=== PATIENT | female | born 1955 | race Caucasian/White ===

== ENCOUNTER 2018-10-18 16:55 | Emergency (ER) | payer BC ==
[~2018-10-18] VITALS: Ht 170.2 cm; Wt 85.3 kg
--- OUTSIDE RECORDS SUMMARY | 2018-10-18 17:02 | XMS REPORT ---
Author Author Arvin Solano [facility] Address [address] [place] [address] Care Team Providers Care Electrical Engineering Drafting Officer Name Role Phone Arvin Solano Unavailable PROBLEMS Type Condition ICD9-CM Code [id number] Code Onset Dates Condition Status SNOMED Code Problem Tinea unguium B35.1 Active 192032048 Problem Tinea corporis B35.4 Active 60159770 Problem Malignant neoplasm of thyroid gland C73 Active 574356372 Problem Hypothyroidism E03.9 Active 68460316 Problem Chronic Sinusitis J32.9 Active 21643223 Problem Nocturia R35.1 Active [id number] ALLERGIES No Information ENCOUNTERS Encounter Location Date Diagnosis [facility] [address] [place] [address] Sep, [facility] [place] [address] [place] [address] Sep, [facility] [address] [place] [address] Sep, Anemia D62 [facility] [address] [place] [address] Aug, Anemia D62 [facility] [address] [place] [address] Aug, [facility] [address] [place] [address] Aug, [facility] [address] [place] [address] Aug, [facility] [address] [place] [address] Aug, [facility] [address] [place] [address] 14 Aug, 2018 Retroperitoneal bleed R58 [facility] [address] [place] [address] Aug, [facility] [address] [place], [place] [id number] 08 Aug, 2018 Retroperitoneal bleed R58 [facility] [address] [place] [address] Aug, Anemia D62 [facility] [address] [place] [address] Jul, [facility] [address] [place] [id number] Jul, [facility] [address] [place] [id number] Jul, [facility] [address] [place] [id number] Jul, [facility] [address] [place] [address] Jul, Right upper quadrant abdominal pain R10.11 and Encounter for preprocedural cardiovascular examination Z01.810 [facility] [address] [place] [address] Jul, Right upper quadrant abdominal pain R10.11 and Encounter for preprocedural cardiovascular examination Z01.810 [facility] [address] [place] [address] Jul, Right upper quadrant abdominal pain R10.11 and Encounter for preprocedural cardiovascular examination Z01.810 [facility] [address] [place] [address] Jul, [facility] [address] [place] [address] Jul, [facility] [address] [place] [address] Jul, [facility] [address] [place] [address] Jun, [facility] [address] [place] [address] Jun, [facility] [address] [place] [address] Jun, [facility] [address] [place] [address] Jun, [facility] [address] [place] [address] May, Encounter for screening mammogram for breast cancer Z12.31 [facility] [address] [place] [id number] May, Encounter for general adult medical examination without abnormal findings Z00.00 ; Nocturia R35.1 ; Hypothyroidism E03.9 ; Chronic Sinusitis J32.9 ; Malignant neoplasm of thyroid gland C73 ; Other screening mammogram Z12.31 and Encounter for preprocedural cardiovascular examination Z01.810 [facility] [address] [place] [address] Apr, [facility] [address] [place] [address] Apr, [facility] [address] [place] [address] Apr, [facility] [address] [place] [address] Mar, [facility] [address] [place] [address] Jan, [facility] [address] [place] [address] Jan, [facility] [address] [place] [address] May, [facility] [address] [place] [address] Apr, [facility] [address] [place] [address] Apr, Breast cancer screening Z12.31 [facility] [address] [place] [address] Apr, Encounter for general adult medical examination without abnormal findings Z00.00 ; Nocturia R35.1 ; Hypothyroidism E03.9 ; Chronic Sinusitis J32.9 ; Malignant neoplasm of thyroid gland C73 ; Tinea unguium B35.1 ; Tinea corporis B35.4 and Other screening mammogram Z12.31 [facility] [address] [place] [address] Feb, [facility] [address] [place] [address] Feb, [facility] [address] [place] [address] Feb, [facility] [address] [place] [address] Jan, [facility] [address] [place] [address] Nov, [facility] [address] [place] [address] Feb, [facility] [address] [place] [address] Feb, [facility] [address] [place] [address] 2016 Abnormal mammogram of right breast R92.8 [facility] [address] [place] [address] 14 Jan, 2016 [facility] [address] [place] [address] Jan, [facility] [address] [place] [address] 08 Jan, 2016 Encounter for screening mammogram for breast cancer Z12.31 [facility] [address] [place] [address] 08 Jan, 2016 Encounter for general adult medical examination without abnormal findings Z00.00 ; Nocturia R35.1 ; Hypothyroidism E03.9 ; Chronic Sinusitis J32.9 ; Malignant neoplasm of thyroid gland C73 ; Tinea unguium B35.1 ; Tinea corporis B35.4 ; Other screening mammogram Z12.31 and Encounter for screening mammogram for breast cancer Z12.31 [facility] [address] [place] [address] 18 May, 2015 [facility] [address] [place] [address] 17 May, 2015 [facility] [address] [place] [address] 16 Nov, 2014 Mammogram Screening V76.12 [facility] [address] [place] [address] 16 Nov, 2014 Adult Wellness Exam V70.0 ; Hypothyroidism 244.9 ; Nocturia 788.43 ; Malignant neoplasm of thyroid gland 193 ; Mammogram Screening V76.12 ; Fatigue 780.79 ; Wart 078.10 and Tinea unguium 110.1 [facility] [address] [place] [address] Nov, [facility] [address] [place] [address] Jun, [facility] [address] [place] [address] May, Hypothyroidism 244.9 [facility] [address] [place] [address] Jan, [facility] [address] [place] [address] Dec, Hypothyroidism 244.9 [facility] [address] [place] [address] Sep, [facility] [address] [place] [address] Sep, Adult Wellness Exam V70.0 ; Mammogram Screening V76.12 ; Hypothyroidism 244.9 ; Nocturia 788.43 ; Sinusitis 473.9 and Malignant neoplasm of thyroid gland 193 [facility] [address] [place] [address] Sep, Adult Wellness Exam V70.0 ; Sinusitis 473.9 ; Hypothyroidism 244.9 ; Nocturia 788.43 ; Malignant neoplasm of thyroid gland 193 and Mammogram Screening V76.12 [facility] [address] [place] [address] Jul, [facility] [address] [place] [address] Mar, Hypothyroidism 244.9 [facility] [address] [place] [phone] Feb, [facility] [address] [place] [address] Jan, [facility] [address] [place] [address] Jan, Hypothyroidism 244.9 [facility] [address] [place] [address] Dec, Hypothyroidism 244.9 [facility] [address] [place] [address] Jul, Adult Wellness Exam V70.0 ; Mammogram Screening V76.12 ; Hypothyroidism 244.9 ; Nocturia 788.43 ; Sinusitis 473.9 ; Malignant neoplasm of thyroid gland 193 and Fatigue 780.79 [facility] [address] [place] [address] Jul, Adult Wellness Exam V70.0 ; Hypothyroidism 244.9 ; Nocturia 788.43 ; Mammogram Screening V76.12 ; Sinusitis 473.9 ; Malignant neoplasm of thyroid gland 193 and Fatigue 780.79 [facility] [address] [place] [address] Apr, [facility] [address] [place] [address] Apr, [facility] [address] [place] [address] Mar, [facility] [place] [address] [place] [address] Mar, [facility] [place] [address] [place] [address] Jan, [facility] [address] [address] Jan, [facility] [address] [address] Dec, [facility] [address] [address] October, [facility] [address] [address] Nov, IMMUNIZATIONS No Known Immunizations SOCIAL HISTORY Never Assessed REASON FOR VISIT MRI CD PLAN OF CARE VITAL SIGNS MEDICATIONS Unknown Medications RESULTS No Results PROCEDURES No Known procedures INSTRUCTIONS MEDICATIONS ADMINISTERED No Known Medications MEDICAL (GENERAL) HISTORY Type Description Date Medical History Hypothyroidism Medical History Thyroid Cancer Medical History Allergic Rhinitis Surgical History thyroidectomy for cancer Surgical History cervical polypectomy Surgical History Colonoscopy Repeat 5 yrs due for +FH colon cancer 2007 Surgical History Colonoscopy Repeat 5 yr 2012
--- OUTSIDE RECORDS SUMMARY | 2018-10-18 17:02 | XMS REPORT ---
Author Author Arvin Solano [facility] Address [address] [place] [address] Care Team Providers Care Furnace Repairer Name Role Phone Arvin Solano Unavailable PROBLEMS Type Condition ICD9-CM Code GQR19-FA Code Onset Dates Condition Status SNOMED Code Problem Tinea unguium B35.1 Active 840159132 Problem Tinea corporis B35.4 Active 55986696 Problem Malignant neoplasm of thyroid gland C73 Active 330888024 Problem Hypothyroidism E03.9 Active 57948362 Problem Chronic Sinusitis J32.9 Active 97912521 Problem Nocturia R35.1 Active 350037776 ALLERGIES No Information ENCOUNTERS Encounter Location Date Diagnosis [facility] [address] [place] [address] Sep, [facility] [place] [address] [place] [address] Sep, [facility] [address] [place] [address] Sep, Anemia D62 [facility] [address] [place] [address] Aug, Anemia D62 [facility] [address] [place] [address] Aug, [facility] [address] [place] [address] Aug, [facility] [address] [place] [address] Aug, [facility] [address] [place] [address] Aug, [facility] [address] [place] [address] Aug, Retroperitoneal bleed R58 [facility] [address] [place] [address] Aug, [facility] [address] [place] [address] 08 Aug, 2018 Retroperitoneal bleed R58 [facility] [address] [place] [address] Aug, Anemia D62 [facility] [address] [place] [address] Jul, [facility] [address] [place] [id number] Jul, [facility] [address] [place] [id number] Jul, [facility] [address] [place] [id number] Jul, [facility] [address] [place] [address] Jul, Right upper quadrant abdominal pain R10.11 and Encounter for preprocedural cardiovascular examination Z01.810 [facility] [address] [place] [address] Jul, Right upper quadrant abdominal pain R10.11 and Encounter for preprocedural cardiovascular examination Z01.810 [facility] [address] [place] [address] Jul, Right upper quadrant abdominal pain R10.11 and Encounter for preprocedural cardiovascular examination Z01.810 [facility] [address] [place] [address] Jul, [facility] [address] [place] [address] Jul, [facility] [address] [place] [address] Jul, [facility] [address] [place] [address] Jun, [facility] [address] [place] [address] Jun, [facility] [address] [place] [address] Jun, [facility] [address] [place] [address] Jun, [facility] [address] [place] [address] May, Encounter for screening mammogram for breast cancer Z12.31 [facility] [address] [place] [id number] May, Encounter for general adult medical examination without abnormal findings Z00.00 ; Nocturia R35.1 ; Hypothyroidism E03.9 ; Chronic Sinusitis J32.9 ; Malignant neoplasm of thyroid gland C73 ; Other screening mammogram Z12.31 and Encounter for preprocedural cardiovascular examination Z01.810 [facility] [address] [place] [address] Apr, [facility] [address] [place] [address] Apr, [facility] [address] [place] [address] Apr, [facility] [address] [place] [address] Mar, [facility] [address] [place] [address] Jan, [facility] [address] [place] [address] Jan, [facility] [address] [place] [address] May, [facility] [address] [place] [address] Apr, [facility] [address] [place] [address] Apr, Breast cancer screening Z12.31 [facility] [address] [place] [address] Apr, Encounter for general adult medical examination without abnormal findings Z00.00 ; Nocturia R35.1 ; Hypothyroidism E03.9 ; Chronic Sinusitis J32.9 ; Malignant neoplasm of thyroid gland C73 ; Tinea unguium B35.1 ; Tinea corporis B35.4 and Other screening mammogram Z12.31 [facility] [address] [place] [address] Feb, [facility] [address] [place] [address] Feb, [facility] [address] [place] [address] Feb, [facility] [address] [place] [address] Jan, [facility] [address] [place] [address] Nov, [facility] [address] [place] [address] Feb, [facility] [address] [place] [address] Feb, [facility] [address] [place] [address] 2016 Abnormal mammogram of right breast R92.8 [facility] [address] [place] [address] 14 Jan, 2016 [facility] [address] [place] [address] Jan, [facility] [address] [place] [address] 08 Jan, 2016 Encounter for screening mammogram for breast cancer Z12.31 [facility] [address] [place] [address] 08 Jan, 2016 Encounter for general adult medical examination without abnormal findings Z00.00 ; Nocturia R35.1 ; Hypothyroidism E03.9 ; Chronic Sinusitis J32.9 ; Malignant neoplasm of thyroid gland C73 ; Tinea unguium B35.1 ; Tinea corporis B35.4 ; Other screening mammogram Z12.31 and Encounter for screening mammogram for breast cancer Z12.31 [facility] [address] [place] [address] 18 May, 2015 [facility] [address] [place] [address] 17 May, 2015 [facility] [address] [place] [address] 16 Nov, 2014 Mammogram Screening V76.12 [facility] [address] [place] [address] 16 Nov, 2014 Adult Wellness Exam V70.0 ; Hypothyroidism 244.9 ; Nocturia 788.43 ; Malignant neoplasm of thyroid gland 193 ; Mammogram Screening V76.12 ; Fatigue 780.79 ; Wart 078.10 and Tinea unguium 110.1 [facility] [address] [place] [address] Nov, [facility] [address] [place] [address] Jun, [facility] [address] [place] [address] May, Hypothyroidism 244.9 [facility] [address] [place] [address] Jan, [facility] [address] [place] [address] Dec, Hypothyroidism 244.9 [facility] [address] [place] [address] Sep, [facility] [address] [place] [address] Sep, Adult Wellness Exam V70.0 ; Mammogram Screening V76.12 ; Hypothyroidism 244.9 ; Nocturia 788.43 ; Sinusitis 473.9 and Malignant neoplasm of thyroid gland 193 [facility] [address] [place] [address] Sep, Adult Wellness Exam V70.0 ; Sinusitis 473.9 ; Hypothyroidism 244.9 ; Nocturia 788.43 ; Malignant neoplasm of thyroid gland 193 and Mammogram Screening V76.12 [facility] [address] [place] [address] Jul, [facility] [address] [place] [address] Mar, Hypothyroidism 244.9 [facility] [address] [place] [phone] Feb, [facility] [address] [place] [address] Jan, [facility] [address] [place] [address] Jan, Hypothyroidism 244.9 [facility] [address] [place] [address] Dec, Hypothyroidism 244.9 [facility] [address] [place] [address] Jul, Adult Wellness Exam V70.0 ; Mammogram Screening V76.12 ; Hypothyroidism 244.9 ; Nocturia 788.43 ; Sinusitis 473.9 ; Malignant neoplasm of thyroid gland 193 and Fatigue 780.79 [facility] [address] [place] [address] Jul, Adult Wellness Exam V70.0 ; Hypothyroidism 244.9 ; Nocturia 788.43 ; Mammogram Screening V76.12 ; Sinusitis 473.9 ; Malignant neoplasm of thyroid gland 193 and Fatigue 780.79 [facility] [address] [place] [address] Apr, [facility] [address] [place] [address] Apr, [facility] [address] [place] [address] Mar, [facility] [place] [address] [place] [address] Mar, [facility] [place] [address] [place] [address] Jan, [facility] [place] [address] [place] [address] Jan, [facility] [address] [address] Dec, [facility] [address] [address] October, [facility] [address] [address] Nov, IMMUNIZATIONS No Known Immunizations SOCIAL HISTORY Never Assessed REASON FOR VISIT Re:RE:Appointment with specialist? PLAN OF CARE VITAL SIGNS MEDICATIONS Unknown [...]
--- OUTSIDE RECORDS SUMMARY | 2018-10-18 17:02 | XMS REPORT ---
Author Author [facility] Address [address] [place] [address] Care Team Providers Care Charge Auditor Name Role Phone Arvin Solano Unavailable PROBLEMS Type Condition ICD9-CM Code [id number] Code Onset Dates Condition Status SNOMED Code Problem Tinea unguium B35.1 Active 704432963 Problem Tinea corporis B35.4 Active 40253113 Problem Malignant neoplasm of thyroid gland C73 Active 686075932 Problem Hypothyroidism E03.9 Active 68881787 Problem Chronic Sinusitis J32.9 Active 93572249 Problem Nocturia R35.1 Active [id number] ALLERGIES No Information ENCOUNTERS Encounter Location Date Diagnosis [facility] [place] [address] [place] [address] Sep, [facility] [place] [address] [place] [address] Sep, [facility] [place] [address] [place] [address] Sep, Anemia D62 [facility] [address] [place] [address] Aug, Anemia D62 [facility] [place] [address] [place] [address] Aug, [facility] [address] [place] [address] Aug, [facility] [address] [place] [address] Aug, [facility] [address] [place] [address] Aug, [facility] [address] [place] [address] Aug, Retroperitoneal bleed R58 [facility] [address] [place] [address] Aug, [facility] [address] [place] [address] Aug, Retroperitoneal bleed R58 [facility] [address] [place] [address] Aug, Anemia D62 [facility] [address] [place] [address] Jul, [facility] [address] [place] [address] Jul, [facility] [address] [place] [address] Jul, [facility] [address] [place] [address] Jul, [facility] [address] [place] [address] Jul, Right upper quadrant abdominal pain R10.11 and Encounter for preprocedural cardiovascular examination Z01.810 [facility] [address] [place] [address] Jul, Right upper quadrant abdominal pain R10.11 and Encounter for preprocedural cardiovascular examination Z01.810 [facility] [address] [place] [address] Jul, Right upper quadrant abdominal pain R10.11 and Encounter for preprocedural cardiovascular examination Z01.810 [facility] [address] [place] [address] Jul, [facility] [address] [place] [address] Jul, [facility] [address] [place] [address] Jul, [facility] [address] [place] [address] Jun, [facility] [address] [place] [address] Jun, [facility] [address] [place] [address] Jun, [facility] [address] [place] [address] Jun, [facility] [address] [place] [address] May, Encounter for screening mammogram for breast cancer Z12.31 [facility] [address] [place] [address] May, Encounter for general adult medical examination without abnormal findings Z00.00 ; Nocturia R35.1 ; Hypothyroidism E03.9 ; Chronic Sinusitis J32.9 ; Malignant neoplasm of thyroid gland C73 ; Other screening mammogram Z12.31 and Encounter for preprocedural cardiovascular examination Z01.810 [facility] [address] [place] [address] 14 Apr, 2018 [facility] [address] [place] [address] Apr, [facility] [address] [place] [address] Apr, [facility] [address] [place] [address] Mar, [facility] [address] [place] [address] Jan, [facility] [address] [place] [address] Jan, [facility] [address] [place] [address] May, [facility] [address] [place] [address] Apr, [facility] [address] [place] [address] Apr, Breast cancer screening Z12.31 [facility] [address] [place] [address] Apr, Encounter for general adult medical examination without abnormal findings Z00.00 ; Nocturia R35.1 ; Hypothyroidism E03.9 ; Chronic Sinusitis J32.9 ; Malignant neoplasm of thyroid gland C73 ; Tinea unguium B35.1 ; Tinea corporis B35.4 and Other screening mammogram Z12.31 [facility] [address] [place] [address] Feb, [facility] [address] [place] [address] Feb, [facility] [address] [place] [address] Feb, [facility] [address] [place] [address] Jan, [facility] [address] [place] [address] Nov, [facility] [address] [place] [address] Feb, [facility] [address] [place] [address] Feb, [facility] [address] [place] [address] 2016 Abnormal mammogram of right breast R92.8 [facility] [address] [place] [address] 14 Jan, 2016 [facility] [address] [place] [address] Jan, [facility] [address] [place] [address] 08 Jan, 2016 Encounter for screening mammogram for breast cancer Z12.31 [facility] [address] [place] [address] 08 Jan, 2016 Encounter for general adult medical examination without abnormal findings Z00.00 ; Nocturia R35.1 ; Hypothyroidism E03.9 ; Chronic Sinusitis J32.9 ; Malignant neoplasm of thyroid gland C73 ; Tinea unguium B35.1 ; Tinea corporis B35.4 ; Other screening mammogram Z12.31 and Encounter for screening mammogram for breast cancer Z12.31 [facility] [address] [place] [address] 18 May, 2015 [facility] [address] [place] [address] 17 May, 2015 [facility] [address] [place] [address] 16 Nov, 2014 Mammogram Screening V76.12 [facility] [address] [place] [address] 16 Nov, 2014 Adult Wellness Exam V70.0 ; Hypothyroidism 244.9 ; Nocturia 788.43 ; Malignant neoplasm of thyroid gland 193 ; Mammogram Screening V76.12 ; Fatigue 780.79 ; Wart 078.10 and Tinea unguium 110.1 [facility] [address] [place] [address] Nov, [facility] [address] [place] [address] Jun, [facility] [address] [place] [address] May, Hypothyroidism 244.9 [facility] [address] [place] [address] Jan, [facility] [address] [place] [address] Dec, Hypothyroidism 244.9 [facility] [address] [place] [address] Sep, [facility] [address] [place] [address] Sep, Adult Wellness Exam V70.0 ; Mammogram Screening V76.12 ; Hypothyroidism 244.9 ; Nocturia 788.43 ; Sinusitis 473.9 and Malignant neoplasm of thyroid gland 193 [facility] [address] [place] [address] Sep, Adult Wellness Exam V70.0 ; Sinusitis 473.9 ; Hypothyroidism 244.9 ; Nocturia 788.43 ; Malignant neoplasm of thyroid gland 193 and Mammogram Screening V76.12 [facility] [address] [place] [address] Jul, [facility] [address] [place] [address] Mar, Hypothyroidism 244.9 [facility] [address] [place] [id number] Feb, [facility] [address] [place] [address] Jan, [facility] [address] [place] [address] Jan, Hypothyroidism 244.9 [facility] [address] [place] [address] Dec, Hypothyroidism 244.9 [facility] [address] [place] [address] Jul, Adult Wellness Exam V70.0 ; Mammogram Screening V76.12 ; Hypothyroidism 244.9 ; Nocturia 788.43 ; Sinusitis 473.9 ; Malignant neoplasm of thyroid gland 193 and Fatigue 780.79 [facility] [address] [place] [address] Jul, Adult Wellness Exam V70.0 ; Hypothyroidism 244.9 ; Nocturia 788.43 ; Mammogram Screening V76.12 ; Sinusitis 473.9 ; Malignant neoplasm of thyroid gland 193 and Fatigue 780.79 [facility] [address] [place] [address] Apr, [facility] [address] [place] [address] Apr, [facility] [address] [place] [address] Mar, [facility] [place] [address] [place] [address] Mar, [facility] [place] [address] [place] [address] Jan, [facility] [place] [address] [place] [address] Jan, [facility] [place] [address] [place] [address] Dec, [facility] [place] [address] [place] [address] October, [facility] [place] [address] [place] [address] Nov, IMMUNIZATIONS No Known Immunizations SOCIAL HISTORY Never Assessed REASON FOR VISIT Cancel Colonoscopy PLAN OF CARE VITAL SIGNS MEDICATIONS Unknown [...]
--- OUTSIDE RECORDS SUMMARY | 2018-10-18 17:03 | XMS REPORT ---
Author Author Arvin Solano [facility] Address [address] [place] [address] Care Team Providers Care Supply Chain Technician Name Role Phone Arvin Solano Unavailable PROBLEMS Type Condition ICD9-CM Code [id number]-EX Code Onset Dates Condition Status SNOMED Code Problem Tinea unguium B35.1 Active 426729440 Problem Tinea corporis B35.4 Active 08018494 Problem Malignant neoplasm of thyroid gland C73 Active 799259730 Problem Hypothyroidism E03.9 Active 78910989 Problem Chronic Sinusitis J32.9 Active 45129063 Problem Nocturia R35.1 Active 480416328 ALLERGIES No Information ENCOUNTERS Encounter Location Date Diagnosis [facility] [address] [place], [place] [id number] Sep, [facility] [place] [address] Aug, [facility] [address] [place] [address] Aug, [facility] [address] [place] [address] Aug, [facility] [address] [place] [address] Aug, Retroperitoneal bleed R58 [facility] [address] [place] [address] Aug, [facility] [address] [place] [address] Aug, Retroperitoneal bleed R58 [facility] [address] [place] [address] Aug, Anemia D62 [facility] [address] [place] [address] Jul, [facility] [address] [place] [address] Jul, [facility] [address] [place] [address] Jul, [facility] [address] [place] [address] Jul, [facility] [address] [place] [address] 18 Jul, 2018 Right upper quadrant abdominal pain R10.11 and Encounter for preprocedural cardiovascular examination Z01.810 [facility] [address] [place] [address] 18 Jul, 2018 Right upper quadrant abdominal pain R10.11 and Encounter for preprocedural cardiovascular examination Z01.810 [facility] [address] [place] [address] 18 Jul, 2018 Right upper quadrant abdominal pain R10.11 and Encounter for preprocedural cardiovascular examination Z01.810 [facility] [address] [place] [address] 12 Jul, 2018 [facility] [address] [place] [address] Jul, [facility] [address] [place] [address] Jul, [facility] [address] [place] [address] Jun, [facility] [address] [place] [address] Jun, [facility] [address] [place] [address] Jun, [facility] [address] [place] [address] Jun, [facility] [address] [place] [address] May, Encounter for screening mammogram for breast cancer Z12.31 [facility] [address] [place] [id number] 27 May, 2018 Encounter for general adult medical examination without abnormal findings Z00.00 ; Nocturia R35.1 ; Hypothyroidism E03.9 ; Chronic Sinusitis J32.9 ; Malignant neoplasm of thyroid gland C73 ; Other screening mammogram Z12.31 and Encounter for preprocedural cardiovascular examination Z01.810 [facility] [address] [place] [address] 14 Apr, 2018 [facility] [address] [place] [address] Apr, [facility] [address] [place] [address] Apr, [facility] [address] [place] [address] Mar, [facility] [address] [place] [address] Jan, [facility] [address] [place] [address] Jan, [facility] [address] [place] [address] May, [facility] [address] [place] [address] Apr, [facility] [address] [place] [address] Apr, Breast cancer screening Z12.31 [facility] [address] [place] [address] Apr, Encounter for general adult medical examination without abnormal findings Z00.00 ; Nocturia R35.1 ; Hypothyroidism E03.9 ; Chronic Sinusitis J32.9 ; Malignant neoplasm of thyroid gland C73 ; Tinea unguium B35.1 ; Tinea corporis B35.4 and Other screening mammogram Z12.31 [facility] [address] [place] [address] Feb, [facility] [address] [place] [address] Feb, [facility] [address] [place] [address] Feb, [facility] [address] [place] [address] Jan, [facility] [address] [place] [address] Nov, [facility] [address] [place] [address] Feb, [facility] [address] [place] [address] Feb, [facility] [address] [place] [address] Jan, Abnormal mammogram of right breast R92.8 [facility] [address] [place] [address] Jan, [facility] [address] [place] [address] Jan, [facility] [address] [place] [address] 08 Jan, 2016 Encounter for screening mammogram for breast cancer Z12.31 [facility] [place] [address] 08 Jan, 2016 Encounter for general adult medical examination without abnormal findings Z00.00 ; Nocturia R35.1 ; Hypothyroidism E03.9 ; Chronic Sinusitis J32.9 ; Malignant neoplasm of thyroid gland C73 ; Tinea unguium B35.1 ; Tinea corporis B35.4 ; Other screening mammogram Z12.31 and Encounter for screening mammogram for breast cancer Z12.31 [facility] [place] [address] [place] [address] May, [facility] [address] [place] [address] 17 May, 2015 [facility] [place] [address] 16 Nov, 2014 Mammogram Screening V76.12 [facility] [place] [address] Nov, Adult Wellness Exam V70.0 ; Hypothyroidism 244.9 ; Nocturia 788.43 ; Malignant neoplasm of thyroid gland 193 ; Mammogram Screening V76.12 ; Fatigue 780.79 ; Wart 078.10 and Tinea unguium 110.1 [facility] [place] [address] [place] [address] Nov, [facility] [place] [address] [place] [address] Jun, [facility] [place] [address] [place] [address] May, Hypothyroidism 244.9 [facility] [address] [place] [address] Jan, [facility] [address] [place] [address] Dec, Hypothyroidism 244.9 [facility] [address] [place] [address] Sep, [facility] [address] [place] [address] Sep, Adult Wellness Exam V70.0 ; Mammogram Screening V76.12 ; Hypothyroidism 244.9 ; Nocturia 788.43 ; Sinusitis 473.9 and Malignant neoplasm of thyroid gland 193 [facility] [address] [place] [address] Sep, Adult Wellness Exam V70.0 ; Sinusitis 473.9 ; Hypothyroidism 244.9 ; Nocturia 788.43 ; Malignant neoplasm of thyroid gland 193 and Mammogram Screening V76.12 [facility] [address] [place] [address] Jul, [facility] [address] [place] [address] Mar, Hypothyroidism 244.9 [facility] [address] [place] [id number] Feb, [facility] [address] [place] [address] Jan, [facility] [address] [place] [address] Jan, Hypothyroidism 244.9 [facility] [address] [place] [address] Dec, Hypothyroidism 244.9 [facility] [address] [place] [address] Jul, Adult Wellness Exam V70.0 ; Mammogram Screening V76.12 ; Hypothyroidism 244.9 ; Nocturia 788.43 ; Sinusitis 473.9 ; Malignant neoplasm of thyroid gland 193 and Fatigue 780.79 [facility] [address] [place] [address] Jul, Adult Wellness Exam V70.0 ; Hypothyroidism 244.9 ; Nocturia 788.43 ; Mammogram Screening V76.12 ; Sinusitis 473.9 ; Malignant neoplasm of thyroid gland 193 and Fatigue 780.79 [facility] [address] [place] [address] Apr, [facility] [address] [place] [address] Apr, [facility] [address] [place] [address] Mar, [facility] [address] [place] [address] Mar, [facility] [address] [place] [address] Jan, [facility] [address] [place] [address] Jan, [facility] [address] [place] [address] Dec, [facility] [place] [address] [place] [address] October, [facility] [place] [address] [place] [address] Nov, IMMUNIZATIONS No Known Immunizations SOCIAL HISTORY Never Assessed REASON FOR VISIT Re:RE:You called.. PLAN OF CARE VITAL SIGNS MEDICATIONS Unknown [...]
--- OUTSIDE RECORDS SUMMARY | 2018-10-18 17:03 | XMS REPORT ---
Author Author Arvin Solano [facility] Address [address] [place] [address] Care Team Providers Care Putty And Patch Worker Name Role Phone Arvin Solano Unavailable PROBLEMS Type Condition ICD9-CM Code [id number] Code Onset Dates Condition Status SNOMED Code Problem Tinea corporis B35.4 Active 65852281 Problem Tinea unguium B35.1 Active 139598997 Problem Hypothyroidism E03.9 Active 41839944 Problem Malignant neoplasm of thyroid gland C73 Active 016983529 Problem Nocturia R35.1 Active 412485073 Problem Chronic Sinusitis J32.9 Active 98353208 ALLERGIES No Information ENCOUNTERS Encounter Location Date Diagnosis [facility] [address] [place] [address] May, [facility] [address] [place] [address] May, [facility] [address] [place] [address] Apr, [facility] [address] [place] [address] Apr, [facility] [address] [place] [address] Apr, [facility] [address] [place] [address] Mar, [facility] [address] [place] [address] Jan, [facility] [address] [place] [address] Jan, [facility] [address] [place] [address] May, [facility] [address] [place] [address] Apr, [facility] [address] [place] [address] Apr, Breast cancer screening Z12.31 [facility] [address] [place] [address] Apr, Encounter for general adult medical examination without abnormal findings Z00.00 ; Nocturia R35.1 ; Hypothyroidism E03.9 ; Chronic Sinusitis J32.9 ; Malignant neoplasm of thyroid gland C73 ; Tinea unguium B35.1 ; Tinea corporis B35.4 and Other screening mammogram Z12.31 [facility] [address] [place] [address] Feb, [facility] [address] [place] [address] Feb, [facility] [address] [place] [address] Feb, [facility] [address] [place] [address] Jan, [facility] [address] [place] [address] Nov, [facility] [place] [address] [place] [address] Feb, [facility] [address] [place] [address] Feb, [facility] [address] [place] [address] Jan, Abnormal mammogram of right breast R92.8 [facility] [address] [place] [address] Jan, [facility] [address] [place] [address] Jan, [facility] [place] [address] [place] [address] Jan, Encounter for screening mammogram for breast cancer Z12.31 [facility] [address] [place] [address] 08 Jan, 2016 Encounter for general adult medical examination without abnormal findings Z00.00 ; Nocturia R35.1 ; Hypothyroidism E03.9 ; Chronic Sinusitis J32.9 ; Malignant neoplasm of thyroid gland C73 ; Tinea unguium B35.1 ; Tinea corporis B35.4 ; Other screening mammogram Z12.31 and Encounter for screening mammogram for breast cancer Z12.31 [facility] [address] [place] [address] May, [facility] [address] [place] [address] May, [facility] [address] [place] [address] Nov, Mammogram Screening V76.12 [facility] [address] [place] [address] 16 Nov, 2014 Adult Wellness Exam V70.0 ; Hypothyroidism 244.9 ; Nocturia 788.43 ; Malignant neoplasm of thyroid gland 193 ; Mammogram Screening V76.12 ; Fatigue 780.79 ; Wart 078.10 and Tinea unguium 110.1 [facility] [address] [place] [address] Nov, [facility] [address] [place] [address] Jun, [facility] [address] [place] [address] May, Hypothyroidism 244.[address] [facility] [address] [place] [address] Jan, [facility] [address] [place] [address] Dec, [address]roidism 244[address] [facility] [address] [place] [address] Sep, [facility] [address] [place] [address] Sep, Adult Wellness Exam V70.0 ; Mammogram Screening V76.12 ; Hypothyroidism 244.9 ; Nocturia 788.43 ; Sinusitis 473.9 and Malignant neoplasm of thyroid gland 193 [facility] [address] [place] [address] Sep, Adult Wellness Exam V70.0 ; Sinusitis 473.9 ; Hypothyroidism 244.9 ; Nocturia 788.43 ; Malignant neoplasm of thyroid gland 193 and Mammogram Screening V76.12 [facility] [address] [place] [address] Jul, [facility] [address] [place] [address] Mar, Hypothyroidism 244.9 [facility] [address] [place] [id number] 09 Feb, 2013 [facility] [address] [place] [address] Jan, [facility] [address] [place] [address] Jan, Hypothyroidism 244.9 [facility] [place] [address] [place] [address] Dec, Hypothyroidism 244.9 [facility] [place] [address] [place] [address] Jul, Adult Wellness Exam V70.0 ; Mammogram Screening V76.12 ; Hypothyroidism 244.9 ; Nocturia 788.43 ; Sinusitis 473.9 ; Malignant neoplasm of thyroid gland [address] [facility] [place] [address] [place] [address] Jul, Adult Wellness Exam V70.0 ; Hypothyroidism 244.9 ; Nocturia 788.43 ; Mammogram Screening V76.12 ; Sinusitis 473.9 ; Malignant neoplasm of thyroid gland 193 and Fatigue 780.79 [facility] [place] [address] [place] [address] Apr, [facility] [place] [address] [place] [address] Apr, [facility] [place] [address] [place] [address] Mar, [facility] [place] [address] [place] [address] Mar, [facility] [place] [address] [place] [address] Jan, [facility] [place] [address] [place] [address] Jan, [facility] [place] [address] [place] [address] Dec, [facility] [place] [address] [place] [address] October, [facility] [place] [address] [place] [address] Nov, IMMUNIZATIONS No Known Immunizations SOCIAL HISTORY Never Assessed REASON FOR VISIT Re:RE:New Refill Request PLAN OF CARE VITAL SIGNS MEDICATIONS Unknown Medications RESULTS No Results PROCEDURES No Known procedures INSTRUCTIONS MEDICATIONS ADMINISTERED No Known Medications MEDICAL (GENERAL) HISTORY Type Description Date Medical History Hypothyroidism Medical History Thyroid Cancer Medical History Allergic Rhinitis Surgical History thyroidectomy for cancer Surgical History cervical polypectomy Surgical History Colonoscopy w/Dr. Mena-anne 5 years 02/23/13
--- OUTSIDE RECORDS SUMMARY | 2018-10-18 17:03 | XMS REPORT ---
Author Author Arvin Solano [facility] Address [address] [place] [address] Care Team Providers Care Aqua Ammonia Operator Name Role Phone Arvin Solano Unavailable PROBLEMS Type Condition ICD9-CM Code [id number] Code Onset Dates Condition Status SNOMED Code Problem Tinea corporis B35.4 Active 69327052 Problem Tinea unguium B35.1 Active 311870764 Problem Hypothyroidism E03.9 Active 54042499 Problem Malignant neoplasm of thyroid gland C73 Active 513004501 Problem Nocturia R35.1 Active 396823458 Problem Chronic Sinusitis J32.9 Active 92382214 ALLERGIES No Information ENCOUNTERS Encounter Location Date Diagnosis [facility] [address] [place] [address] May, [facility] [place] [address] [place] [address] May, [facility] [address] [place] [address] Mar, [facility] [address] [place] [address] Jan, [facility] [address] [place] [address] Jan, [facility] [address] [place] [address] May, [facility] [address] [place] [address] Apr, [facility] [address] [place] [address] Apr, Breast cancer screening Z12.31 [facility] [place] [address] Apr, Encounter for general adult medical examination without abnormal findings Z00.00 ; Nocturia R35.1 ; Hypothyroidism E03.9 ; Chronic Sinusitis J32.9 ; Malignant neoplasm of thyroid gland C73 ; Tinea unguium B35.1 ; Tinea corporis B35.4 and Other screening mammogram Z12.31 [facility] [address] [place] [address] Feb, [facility] [address] [place] [address] Feb, [facility] [address] [place] [address] Feb, [facility] [address] [place] [address] Jan, [facility] [address] [place] [address] Nov, [facility] [address] [place] [address] Feb, [facility] [address] [place] [address] Feb, [facility] [address] [place] [address] Jan, Abnormal mammogram of right breast R92.8 [facility] [place] [address] [place] [address] Jan, [facility] [address] [place] [address] Jan, [facility] [address] [place] [address] Jan, Encounter for screening mammogram for breast cancer Z12.31 [facility] [address] [place] [address] 08 Jan, 2016 Encounter for general adult medical examination without abnormal findings Z00.00 ; Nocturia R35.1 ; Hypothyroidism E03.9 ; Chronic Sinusitis J32.9 ; Malignant neoplasm of thyroid gland C73 ; Tinea unguium B35.1 ; Tinea corporis B35.4 ; Other screening mammogram Z12.31 and Encounter for screening mammogram for breast cancer Z12.31 [facility] [address] [place] [address] May, [facility] [address] [place] [address] May, [facility] [address] [place] [address] Nov, Mammogram Screening V76.12 [facility] [address] [place] [address] Nov, Adult Wellness Exam V70.0 ; Hypothyroidism 244.9 ; Nocturia 788.43 ; Malignant neoplasm of thyroid gland 193 ; Mammogram Screening V76.12 ; Fatigue 780.79 ; Wart 078.10 and Tinea unguium 110.1 [facility] [address] [place] [address] Nov, [facility] [address] [place] [address] Jun, [facility] [address] [place] [address] May, Hypothyroidism 244.9 [facility] [address] [place] [address] Jan, [facility] [address] [place] [address] Dec, Hypothyroidism 244.9 [facility] [address] [place] [address] Sep, [facility] [address] [place] [address] Sep, Adult Wellness Exam V70.0 ; Mammogram Screening V76.12 ; Hypothyroidism 244.9 ; Nocturia 788.43 ; Sinusitis 473.9 and Malignant neoplasm of thyroid gland 193 [facility] [address] [place] [address] Sep, Adult Wellness Exam V70.0 ; Sinusitis 473.9 ; Hypothyroidism 244.9 ; Nocturia 788.43 ; Malignant neoplasm of thyroid gland 193 and Mammogram Screening V76.12 [facility] [address] [place] [address] Jul, [facility] [address] [place] [address] Mar, Hypothyroidism 244.9 [facility] [address] [place] [address] Feb, [facility] [address] [place] [address] Jan, [facility] [address] [place] [address] Jan, Hypothyroidism 244.9 [facility] [address] [place] [address] Dec, Hypothyroidism 244.9 [facility] [address] [place] [address] Jul, Adult Wellness Exam V70.0 ; Mammogram Screening V76.12 ; Hypothyroidism 244.9 ; Nocturia 788.43 ; Sinusitis 473.9 ; Malignant neoplasm of thyroid gland 193 and Fatigue 780.79 [facility] [address] [place] [address] Jul, Adult Wellness Exam V70.0 ; Hypothyroidism 244.9 ; Nocturia 788.43 ; Mammogram Screening V76.12 ; Sinusitis 473.9 ; Malignant neoplasm of thyroid gland 193 and Fatigue 780.79 [facility] [address] [place] [address] Apr, [facility] [place] [address] [place] [address] Apr, [facility] [address] [place] [address] Mar, [facility] [place] [address] [place] [address] Mar, [facility] [place] [address] [place] [address] Jan, [facility] [place] [address] [place] [address] Jan, [facility] [address] [place] [address] Dec, [facility] [address] [place] [address] October, [facility] [address] [place] [address] Nov, IMMUNIZATIONS No Known Immunizations SOCIAL HISTORY Never Assessed REASON FOR VISIT Update Demographics - Personal Info PLAN OF CARE VITAL SIGNS MEDICATIONS Unknown Medications RESULTS No Results PROCEDURES No Known procedures INSTRUCTIONS MEDICATIONS ADMINISTERED No Known Medications MEDICAL (GENERAL) HISTORY Type Description Date Medical History Hypothyroidism Medical History Thyroid Cancer Medical History Allergic Rhinitis Surgical History thyroidectomy for cancer Surgical History cervical polypectomy Surgical History Colonoscopy w/Dr. Mena-anne 5 years 02/23/13
--- OUTSIDE RECORDS SUMMARY | 2018-10-18 17:03 | XMS REPORT ---
Author Author Arvin Solano [facility] Address [address] [place] [address] Care Team Providers Care Drill Operator Automatic Name Role Phone Arvin Solano Unavailable PROBLEMS Type Condition ICD9-CM Code [id number] Code Onset Dates Condition Status SNOMED Code Problem Tinea unguium B35.1 Active 398098936 Problem Tinea corporis B35.4 Active 94266017 Problem Malignant neoplasm of thyroid gland C73 Active 624788555 Problem Hypothyroidism E03.9 Active 88897955 Problem Chronic Sinusitis J32.9 Active 33682377 Problem Nocturia R35.1 Active [id number] ALLERGIES No Information ENCOUNTERS Encounter Location Date Diagnosis [facility] [address] [place] [address] Sep, [facility] [place] [address] Aug, [facility] [address] [place] [address] Aug, [facility] [address] [place] [address] Aug, Retroperitoneal bleed R58 [facility] [place] [address] Aug, [facility] [address] [place] [address] Aug, Retroperitoneal bleed R58 [facility] [address] [place] [address] Aug, Anemia D62 [facility] [address] [place] [address] Jul, [facility] [address] [place] [address] Jul, [facility] [address] [place] [address] Jul, [facility] [address] [place] [address] Jul, [facility] [address] [place] [address] 18 Jul, 2018 Right upper quadrant abdominal pain R10.11 and Encounter for preprocedural cardiovascular examination Z01.810 [facility] [address] [place] [address] 18 Jul, 2018 Right upper quadrant abdominal pain R10.11 and Encounter for preprocedural cardiovascular examination Z01.810 [facility] [address] [place] [address] 18 Jul, 2018 Right upper quadrant abdominal pain R10.11 and Encounter for preprocedural cardiovascular examination Z01.810 [facility] [address] [place] [address] Jul, [facility] [address] [place] [address] Jul, [facility] [address] [place] [address] Jul, [facility] [address] [place] [address] Jun, [facility] [address] [place] [address] Jun, [facility] [address] [place] [address] Jun, [facility] [address] [place] [address] Jun, [facility] [address] [place] [address] May, Encounter for screening mammogram for breast cancer Z12.31 [facility] [address] [place] [address] May, Encounter for general adult medical examination without abnormal findings Z00.00 ; Nocturia R35.1 ; Hypothyroidism E03.9 ; Chronic Sinusitis J32.9 ; Malignant neoplasm of thyroid gland C73 ; Other screening mammogram Z12.31 and Encounter for preprocedural cardiovascular examination Z01.810 [facility] [address] [place] [address] Apr, [facility] [address] [place] [address] Apr, [facility] [address] [place] [address] Apr, [facility] [address] [place] [address] Mar, [facility] [address] [place] [address] Jan, [facility] [address] [place] [address] Jan, [facility] [address] [place] [address] May, [facility] [address] [place] [address] Apr, [facility] [address] [place] [address] Apr, Breast cancer screening Z12.31 [facility] [address] [place] [address] Apr, Encounter for general adult medical examination without abnormal findings Z00.00 ; Nocturia R35.1 ; Hypothyroidism E03.9 ; Chronic Sinusitis J32.9 ; Malignant neoplasm of thyroid gland C73 ; Tinea unguium B35.1 ; Tinea corporis B35.4 and Other screening mammogram Z12.31 [facility] [address] [place] [address] Feb, [facility] [address] [place] [address] Feb, [facility] [address] [place] [address] Feb, [facility] [address] [place] [address] Jan, [facility] [address] [place] [address] Nov, [facility] [address] [place] [address] Feb, [facility] [address] [place] [address] Feb, [facility] [address] [place] [address] Jan, Abnormal mammogram of right breast R92.8 [facility] [address] [place] [address] Jan, [facility] [address] [place] [address] Jan, [facility] [address] [place] [address] Jan, Encounter for screening mammogram for breast cancer Z12.31 [facility] [place] [address] [place] [address] 08 Jan, 2016 Encounter for general adult medical examination without abnormal findings Z00.00 ; Nocturia R35.1 ; Hypothyroidism E03.9 ; Chronic Sinusitis J32.9 ; Malignant neoplasm of thyroid gland C73 ; Tinea unguium B35.1 ; Tinea corporis B35.4 ; Other screening mammogram Z12.31 and Encounter for screening mammogram for breast cancer Z12.31 [facility] [address] [place] [address] 18 May, 2015 [facility] [place] [address] [place] [address] 17 May, 2015 [facility] [place] [address] Nov, Mammogram Screening V76.12 [facility] [place] [address] Nov, Adult Wellness Exam V70.0 ; Hypothyroidism 244.9 ; Nocturia 788.43 ; Malignant neoplasm of thyroid gland 193 ; Mammogram Screening V76.12 ; Fatigue 780.79 ; Wart 078.10 and Tinea unguium 110.1 [facility] [place] [address] [place] [address] Nov, [facility] [address] [place] [address] Jun, [facility] [place] [address] [place] [address] May, Hypothyroidism 244.9 [facility] [place] [address] [place] [address] Jan, [facility] [address] [place] [address] Dec, Hypothyroidism 244.9 [facility] [address] [place] [address] Sep, [facility] [place] [address] [place] [address] Sep, Adult Wellness Exam V70.0 ; Mammogram Screening V76.12 ; Hypothyroidism 244.9 ; Nocturia 788.43 ; Sinusitis 473.9 and Malignant neoplasm of thyroid gland 193 [facility] [place] [address] [place] [address] Sep, Adult Wellness Exam V70.0 ; Sinusitis 473.9 ; Hypothyroidism 244.9 ; Nocturia 788.43 ; Malignant neoplasm of thyroid gland 193 and Mammogram Screening V76.12 [facility] [address] [place] [address] Jul, [facility] [address] [place] [address] Mar, Hypothyroidism 244.9 [facility] [address] [place] [address] Feb, [facility] [address] [place] [address] Jan, [facility] [address] [place] [address] Jan, Hypothyroidism 244.9 [facility] [address] [place] [address] Dec, Hypothyroidism 244.9 [facility] [address] [place] [address] Jul, Adult Wellness Exam V70.0 ; Mammogram Screening V76.12 ; Hypothyroidism 244.9 ; Nocturia 788.43 ; Sinusitis 473.9 ; Malignant neoplasm of thyroid gland 193 and Fatigue 780.79 [facility] [address] [place] [address] Jul, Adult Wellness Exam V70.0 ; Hypothyroidism 244.9 ; Nocturia 788.43 ; Mammogram Screening V76.12 ; Sinusitis 473.9 ; Malignant neoplasm of thyroid gland 193 and Fatigue 780.79 [facility] [address] [place] [address] Apr, [facility] [address] [place] [address] Apr, [facility] [address] [place] [address] Mar, [facility] [address] [place] [address] Mar, [facility] [address] [place] [address] Jan, [facility] [address] [place] [address] Jan, [facility] [address] [place] [address] Dec, [facility] [address] [place] [address] October, [facility] [address] [place] [address] Nov, IMMUNIZATIONS No Known Immunizations SOCIAL HISTORY Never Assessed REASON FOR VISIT Re:RE:You called... PLAN OF CARE VITAL SIGNS MEDICATIONS Unknown [...]
--- OUTSIDE RECORDS SUMMARY | 2018-10-18 17:03 | XMS REPORT ---
Author Author Arvin Solano [facility] Address [address] [place] [address] Care Team Providers Care Perfect Binder Feeder Offbearer Name Role Phone Arvin Solano Unavailable PROBLEMS Type Condition ICD9-CM Code [id number] Code Onset Dates Condition Status SNOMED Code Problem Tinea corporis B35.4 Active 95177509 Problem Tinea unguium B35.1 Active 176598323 Problem Hypothyroidism E03.9 Active 88259193 Problem Malignant neoplasm of thyroid gland C73 Active 114878629 Problem Nocturia R35.1 Active 441289995 Problem Chronic Sinusitis J32.9 Active 93575116 ALLERGIES No Information ENCOUNTERS Encounter Location Date Diagnosis [facility] [address] [place] [address] May, [facility] [address] [place] [address] May, [facility] [address] [place] [address] Apr, [facility] [address] [place] [address] Apr, [facility] [address] [place] [address] Apr, [facility] [address] [place] [address] Mar, [facility] [address] [place] [address] Jan, [facility] [address] [place] [address] Jan, [facility] [address] [place] [address] May, [facility] [address] [place] [address] Apr, [facility] [address] [place] [address] Apr, Breast cancer screening Z12.31 [facility] [address] [place] [address] Apr, Encounter for general adult medical examination without abnormal findings Z00.00 ; Nocturia R35.1 ; Hypothyroidism E03.9 ; Chronic Sinusitis J32.9 ; Malignant neoplasm of thyroid gland C73 ; Tinea unguium B35.1 ; Tinea corporis B35.4 and Other screening mammogram Z12.31 [facility] [address] [place] [address] Feb, [facility] [address] [place] [address] Feb, [facility] [address] [place] [address] Feb, [facility] [address] [place] [address] Jan, [facility] [address] [place] [address] Nov, [facility] [place] [address] [place] [address] Feb, [facility] [address] [place] [address] Feb, [facility] [address] [place] [address] Jan, Abnormal mammogram of right breast R92.8 [facility] [address] [place] [address] Jan, [facility] [address] [place] [address] Jan, [facility] [address] [place] [address] Jan, Encounter for screening mammogram for breast cancer Z12.31 [facility] [address] [place] [address] 08 Jan, 2016 Encounter for general adult medical examination without abnormal findings Z00.00 ; Nocturia R35.1 ; Hypothyroidism E03.9 ; Chronic Sinusitis J32.9 ; Malignant neoplasm of thyroid gland C73 ; Tinea unguium B35.1 ; Tinea corporis B35.4 ; Other screening mammogram Z12.31 and Encounter for screening mammogram for breast cancer Z12.31 [facility] [address] [place] [address] May, [facility] [address] [place] [address] May, [facility] [address] [place] [address] Nov, Mammogram Screening V76.12 [facility] [address] [place] [address] 16 Nov, 2014 Adult Wellness Exam V70.0 ; Hypothyroidism 244.9 ; Nocturia 788.43 ; Malignant neoplasm of thyroid gland 193 ; Mammogram Screening V76.12 ; Fatigue 780.79 ; Wart 078.10 and Tinea unguium 110.1 [facility] [address] [place] [address] Nov, [facility] [address] [place] [address] Jun, [facility] [address] [place] [address] May, Hypothyroidism 244.9 [facility] [address] [place] [address] Jan, [facility] [address] [place] [address] Dec, Hypothyroidism 244.9 [facility] [address] [place] [address] Sep, [facility] [address] [place] [address] Sep, Adult Wellness Exam V70.0 ; Mammogram Screening V76.12 ; Hypothyroidism 244.9 ; Nocturia 788.43 ; Sinusitis 473.9 and Malignant neoplasm of thyroid gland 193 [facility] [address] [place] [address] Sep, Adult Wellness Exam V70.0 ; Sinusitis 473.9 ; Hypothyroidism 244.9 ; Nocturia 788.43 ; Malignant neoplasm of thyroid gland 193 and Mammogram Screening V76.12 [facility] [address] [place] [address] Jul, [facility] [address] [place] [address] Mar, Hypothyroidism 244.9 [facility] [address] [place] [phone] 09 Feb, 2013 [facility] [address] [place] [address] Jan, [facility] [address] [place] [address] Jan, Hypothyroidism 244.9 [facility] [address] [place] [address] Dec, Hypothyroidism 244.9 [facility] [address] [place] [address] Jul, Adult Wellness Exam V70.0 ; Mammogram Screening V76.12 ; Hypothyroidism 244.9 ; Nocturia 788.43 ; Sinusitis 473.9 ; Malignant neoplasm of thyroid gland 193 and Fatigue 780.79 [facility] [address] [place] [address] Jul, Adult Wellness Exam V70.0 ; Hypothyroidism 244.9 ; Nocturia 788.43 ; Mammogram Screening V76.12 ; Sinusitis 473.9 ; Malignant neoplasm of thyroid gland 193 and Fatigue 780.79 [facility] [address] [place] [address] Apr, [facility] [address] [place] [address] Apr, [facility] [address] [place] [address] Mar, [facility] [address] [place] [address] Mar, [facility] [address] [place] [address] Jan, [facility] [address] [place] [address] Jan, [facility] [address] [place] [address] Dec, [facility] [address] [place] [address] October, [facility] [address] [place] [address] Nov, IMMUNIZATIONS No Known Immunizations SOCIAL HISTORY Never Assessed REASON FOR VISIT Re:RE:Re:RE:New Refill Request PLAN OF CARE VITAL SIGNS MEDICATIONS Medication Instructions Dosage Frequency Start Date End Date Duration Status Sudafed 60 MG Orally every 6 hrs 1 tablet as needed Apr, NEEDED Active RESULTS No Results PROCEDURES No Known procedures INSTRUCTIONS MEDICATIONS ADMINISTERED No Known Medications MEDICAL (GENERAL) HISTORY Type Description Date Medical History Hypothyroidism Medical History Thyroid Cancer Medical History Allergic Rhinitis Surgical History thyroidectomy for cancer Surgical History cervical polypectomy Surgical History Colonoscopy w/Dr. Smyth 5 years 02/23/13
--- OUTSIDE RECORDS SUMMARY | 2018-10-18 17:04 | XMS REPORT ---
Author Arvin Burger [facility] eClinicalWorks Address Unknown Phone Unavailable Care Team Providers Care Degree Clerk Name Role Phone Arvin Solano CP Unavailable Allergies, Adverse Reactions, Alerts Substance Reaction Event Type Tylenol abnormal smell sensation Drug Allergy Problems Problem Type Condition Code Onset Dates Condition Status Assessment Chronic Sinusitis J32.9 Active Assessment Nocturia R35.1 Active Assessment Hypothyroidism E03.9 Active Problem Tinea unguium B35.1 Active Problem Hypothyroidism E03.9 Active Problem Tinea corporis B35.4 Active Problem Malignant neoplasm of thyroid gland C73 Active Assessment Encounter for general adult medical examination without abnormal findings Z00.00 Active Problem Nocturia R35.1 Active Problem Chronic Sinusitis J32.9 Active Assessment Other screening mammogram Z12.31 Active Assessment Tinea corporis B35.4 Active Assessment Tinea unguium B35.1 Active Assessment Encounter for screening mammogram for breast cancer Z12.31 Active Assessment Malignant neoplasm of thyroid gland C73 Active Medications Medication Code System Code Instructions Start Date End Date Status Dosage Synthroid [facility][NOTE 3] [address]-28 88MCG Orally Once a day 1 tablet Bactroban [facility][NOTE 3] [address]-24 2 % Externally Twice a day October 05, 2013 1 application to affected area Procedures Procedure Coding System Code Date T4 CPT-4 35372 Jan 23, 2016 TSH CPT-4 29670 Jan 23, 2016 URINALYSIS CPT-4 43701 Jan 23, 2016 COMP PROFILE CPT-4 53498 Jan 23, 2016 CBC CPT-4 73920 Jan 23, 2016 PREV MED SEREST 40 CPT-4 51708 Jan 23, 2016 LIPID PROFILE CPT-4 19388 Jan 23, 2016 Vital Signs Date/Time: Jan 23, 2016 Blood Pressure Systolic 115 mm Hg Height 67.5 in Weight 178.2 lbs BMI 27.50 Index Cardiac Monitoring Heart Rate 69 /min Blood Pressure Diastolic 69 mm Hg Results Name Result Date Reference Range Unit Abnormality Flag COMPREHENSIVE CHEM PROFILE ----CALCIUM 9.4 51768246 8.7-10.3 MG/DL ----CO2 27 75996595 23-31 MMOL/L ----CREATININE 0.8 45587856 0.4-1.1 MG/DL ----eGFR If Am 89 56735233 >60 ml/min/1.73m^2 ----GLOBULIN 2.7 76695051 2.0-4.4 G/DL ----eGFR If Non Am 74 90614954 >60 ml/min/1.73m^2 ----ALBUMIN 4.4 55740145 3.2-5.2 G/DL ----TOTAL BILI 0.34 39659856 0.00-1.00 MG/DL ----TOTAL PROTEIN 7.1 69609956 5.9-8.4 G/DL ----SODIUM 144 88524576 133-145 MMOL/L ----ALK PHOS 66 02712622 34-114 U/L ----POTASSIUM 4.0 00199737 3.3-5.1 MMOL/L ----GLUCOSE 87 93910698 60-99 MG/DL ----CHLORIDE 104 15737738 96-108 MMOL/L ----ALT/SGPT 13 96175528 5-40 U/L ----BUN 15 80300185 6-20 MG/DL ----AST/SGOT 19 03430984 5-40 U/L LIPID PROFILE ----CHOL/HDL 2.2 71612893 4.0-6.7 RATIO L ----LDL-DIRECT 90 95439378 0-99 MG/DL ----CHOLESTEROL 158 51811915 50-200 MG/DL ----HDL-DIRECT 72 99414301 45-65 MG/DL H ----TRIGLYCERIDE 50 62287637 30-150 MG/DL Urinalysis ----SQUAMOUS EPITH OCCASIONAL 58338526 FEW/HPF hpf ---- RBC 0-1 33269320 0-2/HPF hpf ----CRYSTALS 0 07707385 NONE/HPF hpf ----BACTERIA 0 00389963 NONE/HPF hpf ----UROBILINOGEN NORM 11299378 0 - 1.0 MG/DL ----OTHER CASTS 0 63373976 NONE/LPF lpf ----KETONES NEG 35217011 NEGATIVE ----MUCOUS 0 63055057 NONE/HPF hpf ----GLUCOSE NORM 20160123 NEG MG/DL ----PROTEIN NEG 90740058 NEGATIVE ----pH 6 78142900 5-8 ----BLOOD NEG 98661745 NEGATIVE ----BILIRUBIN NEG 06516974 NEGATIVE ---- WBC 0-1 77113424 0-5/HPF hpf ----SPEC GRAVITY 1.005 40022642 1.016-1.022 ----COLOR P.YEL 20160123 YELLOW-STRAW ----CLARITY CLEAR 08090764 CLEAR ----LEUKOCYTES NEG 79051863 NEGATIVE ----NITRITES NEG 60819913 NEGATIVE CBC ----MO# 0.5 [id number] 0.1-0.6 X10^3/UL ----MO% 9.4 19406543 1.7-9.3 % H ----EO# 0.1 29302536 0.0-0.2 X10^3/UL ----EO% 1.4 37726806 0.0-3.0 % ----MPV 11.0 46589149 8.9-12.7 FL ----BA# 0.0 91597893 0.0-0.1 X10^3/UL ----RBC 3.85 71415632 3.90-5.20 X10^6 L ----BA% 0.3 37614942 0.0-1.0 % ----MCV 95.3 58783153 81.0-96.0 FL ----LY% 22.5 18078133 20.5-51.1 % ----MCH 31.2 58075056 27.0-33.0 PG ----LY# 1.3 29444741 1.2-3.4 X10^3/UL ----NE% 66.4 37000432 42.2-75.2 % ----HGB 12.0 41900233 11.6-16.0 G/DL ----HCT 36.7 67332532 36.0-46.0 % ----NE# 3.8 14151328 1.4-6.5 X10^3/UL ----PLT 196 48709506 130-400 X10^3 ----WBC 5.7 65976122 4.0-10.0 X10^3/UL ----MCHC 32.7 86224833 32.0-35.0 G/DL ----RDW 12.7 33674628 11.5-15.5 % T4 ----T4 7.8 03311356 4.6-12.0 ?g/dL TSH ----TSH 1.53 55063607 0.40-5.00 ?IU/ML Summary Purpose eClinicalWorks Submission
--- OUTSIDE RECORDS SUMMARY | 2018-10-18 17:04 | XMS REPORT ---
Author Arvin Burger Organization [employer] Address Unknown Phone Unavailable Care Team Providers Care Range Rider Name Role Phone Arvin Solano CP Unavailable Allergies No Known Allergies Problems Problem Type Condition Code Onset Dates Condition Status Problem Tinea unguium B35.1 Active Problem Hypothyroidism E03.9 Active Problem Tinea corporis B35.4 Active Problem Malignant neoplasm of thyroid gland C73 Active Assessment Encounter for screening mammogram for breast cancer Z12.31 Active Problem Nocturia R35.1 Active Problem Chronic Sinusitis J32.9 Active Medications No Known Medications Procedures Procedure Coding System Code Date COMPUTER AIDED SCR CPT-4 90894 Jan 23, 2016 BILATERAL SCR MAMMO CPT-4 86393 Jan 23, 2016 Results No Known Results Summary Purpose eClinicalWorks Submission
--- OUTSIDE RECORDS SUMMARY | 2018-10-18 17:04 | XMS REPORT ---
Author Author Arvin Solano Organization [employer] Address Unknown Phone Unavailable Care Team Providers Care Dural Mechanic Name Role Phone Arvin Solano CP Unavailable Allergies No Known Allergies Problems Problem Type Condition ICD-9 Code Onset Dates Condition Status Problem Nocturia 788.43 Active Problem Sinusitis 473.9 Active Problem Hypothyroidism 244.9 Active Problem Malignant neoplasm of thyroid gland 193 Active Medications Medication Code System Code Instructions Start Date End Date Status Dosage Synthroid [facility] [address]-72 88MCG Orally Once a day Active 1 tablet Results No Known Results Summary Purpose eClinicalWorks Submission
--- OUTSIDE RECORDS SUMMARY | 2018-10-18 17:04 | XMS REPORT ---
Author Author Arvin Solano [facility] Address [address] [place] [address] Care Team Providers Care Chief Strategy Officer Name Role Phone Arvin Solano Unavailable PROBLEMS Type Condition ICD9-CM Code [id number] Code Onset Dates Condition Status SNOMED Code Problem Tinea corporis B35.4 Active 47996384 Problem Tinea unguium B35.1 Active 925220186 Problem Hypothyroidism E03.9 Active 05192412 Problem Malignant neoplasm of thyroid gland C73 Active 573046182 Problem Nocturia R35.1 Active 136494809 Problem Chronic Sinusitis J32.9 Active 11819834 ALLERGIES No Information ENCOUNTERS Encounter Location Date Diagnosis [facility] [place] [address] [place] [address] Jan, [facility] [place] [address] May, [facility] [place] [address] Apr, [facility] [place] [address] Apr, Breast cancer screening Z12.31 [place] [address] Apr, Encounter for general adult medical examination without abnormal findings Z00.00 ; Nocturia R35.1 ; Hypothyroidism E03.9 ; Chronic Sinusitis J32.9 ; Malignant neoplasm of thyroid gland C73 ; Tinea unguium B35.1 ; Tinea corporis B35.4 and Other screening mammogram Z12.31 [facility] [address] [place] [address] Feb, [facility] [address] [address] Feb, [facility] [address] [address] Feb, [facility] [place] [address] [place] [address] Jan, [facility] [address] [place] [address] Nov, [facility] [address] [place] [address] Feb, [facility] [address] [place] [address] Feb, [facility] [address] [place] [address] Jan, Abnormal mammogram of right breast R92.8 [facility] [address] [place] [address] 14 Jan, 2016 [facility] [place] [address] [place] [address] Jan, [facility] [address] [place] [address] 08 Jan, 2016 Encounter for screening mammogram for breast cancer Z12.31 [facility] [place] [address] [place] [address] 08 Jan, 2016 Encounter for general adult medical examination without abnormal findings Z00.00 ; Nocturia R35.1 ; Hypothyroidism E03.9 ; Chronic Sinusitis J32.9 ; Malignant neoplasm of thyroid gland C73 ; Tinea unguium B35.1 ; Tinea corporis B35.4 ; Other screening mammogram Z12.31 and Encounter for screening mammogram for breast cancer Z12.31 [facility] [address] [place] [address] 18 May, 2015 [facility] [address] [place] [address] 17 May, 2015 [facility] [address] [place] [address] 16 Nov, 2014 Mammogram Screening V76.12 [facility] [address] [place] [address] 16 Nov, 2014 Adult Wellness Exam V70.0 ; Hypothyroidism 244.9 ; Nocturia 788.43 ; Malignant neoplasm of thyroid gland 193 ; Mammogram Screening V76.12 ; Fatigue 780.79 ; Wart 078.10 and Tinea unguium 110.1 [facility] [address] [place] [address] Nov, [facility] [address] [place] [address] Jun, [facility] [address] [place] [address] May, Hypothyroidism 244.9 [facility] [address] [place] [address] Jan, [facility] [address] [place] [address] Dec, Hypothyroidism 244.9 [facility] [address] [place] [address] Sep, [facility] [address] [place] [address] Sep, Adult Wellness Exam V70.0 ; Mammogram Screening V76.12 ; Hypothyroidism 244.9 ; Nocturia 788.43 ; Sinusitis 473.9 and Malignant neoplasm of thyroid gland 193 [facility] [address] [place] [address] Sep, Adult Wellness Exam V70.0 ; Sinusitis 473.9 ; Hypothyroidism 244.9 ; Nocturia 788.43 ; Malignant neoplasm of thyroid gland 193 and Mammogram Screening V76.12 [facility] [address] [place] [address] Jul, [facility] [address] [place] [address] Mar, Hypothyroidism 244.9 [facility] [address] [place] [phone] Feb, [facility] [address] [place] [address] Jan, [facility] [address] [place] [address] Jan, Hypothyroidism 244.9 [facility] [address] [place] [address] Dec, Hypothyroidism 244.9 [facility] [address] [place] [address] Jul, Adult Wellness Exam V70.0 ; Mammogram Screening V76.12 ; Hypothyroidism 244.9 ; Nocturia 788.43 ; Sinusitis 473.9 ; Malignant neoplasm of thyroid gland 193 and Fatigue 780.79 [facility] [address] [place] [address] Jul, Adult Wellness Exam V70.0 ; Hypothyroidism 244.9 ; Nocturia 788.43 ; Mammogram Screening V76.12 ; Sinusitis 473.9 ; Malignant neoplasm of thyroid gland 193 and Fatigue 780.79 [facility] [place] [address] [place] [address] Apr, [facility] [place] [address] [place] [address] Apr, [facility] [place] [address] [place] [address] Mar, [facility] [place] [address] [place] [address] Mar, [facility] [place] [address] [place] [address] Jan, [facility] [place] [address] [place] [address] Jan, [facility] [address] [address] Dec, [facility] [place] [address] [place] [address] October, [facility] [place] [address] [place] [address] Nov, IMMUNIZATIONS No Known Immunizations SOCIAL HISTORY Never Assessed REASON FOR VISIT New Refill Request PLAN OF CARE VITAL SIGNS MEDICATIONS Medication Instructions Dosage Frequency Start Date End Date Duration Status Synthroid 88MCG Orally Once a day 1 tablet 24h 90 Active RESULTS No Results PROCEDURES No Known procedures INSTRUCTIONS MEDICATIONS ADMINISTERED No Known Medications MEDICAL (GENERAL) HISTORY Type Description Date Medical History Hypothyroidism Medical History Thyroid Cancer Medical History Allergic Rhinitis Surgical History thyroidectomy for cancer Surgical History cervical polypectomy Surgical History Colonoscopy w/Dr. Mena-repeat 5 years 02/23/13
--- OUTSIDE RECORDS SUMMARY | 2018-10-18 17:04 | XMS REPORT ---
Author Author Arvin Solano [facility] Address [address] [place] [address] Care Team Providers Care Tugboat Pilot Name Role Phone Arvin Solano Unavailable PROBLEMS Type Condition ICD9-CM Code [id number] Code Onset Dates Condition Status SNOMED Code Problem Tinea corporis B35.4 Active 22206465 Problem Tinea unguium B35.1 Active 429129559 Problem Hypothyroidism E03.9 Active 11340218 Problem Malignant neoplasm of thyroid gland C73 Active 722193791 Problem Nocturia R35.1 Active 342549401 Problem Chronic Sinusitis J32.9 Active 40230179 ALLERGIES No Information ENCOUNTERS Encounter Location Date Diagnosis [facility] [place] [address] [place] [address] May, [facility] [place] [address] [place] [address] May, [facility] [place] [address] [place] [address] Jan, [facility] [place] [address] Jan, [facility] [place] [address] May, [facility] [place] [address] 09 Apr, 2017 [facility] [place] [address] Apr, Breast cancer screening Z12.31 [facility] [place] [address] Apr, Encounter for general adult medical examination without abnormal findings Z00.00 ; Nocturia R35.1 ; Hypothyroidism E03.9 ; Chronic Sinusitis J32.9 ; Malignant neoplasm of thyroid gland C73 ; Tinea unguium B35.1 ; Tinea corporis B35.4 and Other screening mammogram Z12.31 [facility] [address] [place] [address] Feb, [facility] [address] [place] [address] Feb, [facility] [address] [place] [address] Feb, [facility] [address] [place] [address] Jan, [facility] [address] [place] [address] Nov, [facility] [address] [place] [address] Feb, [facility] [address] [place] [address] Feb, [facility] [address] [place] [address] Jan, Abnormal mammogram of right breast R92.8 [facility] [address] [place] [address] Jan, [facility] [address] [place] [address] Jan, [facility] [address] [place] [address] Jan, Encounter for screening mammogram for breast cancer Z12.31 [facility] [address] [place] [address] 08 Jan, 2016 Encounter for general adult medical examination without abnormal findings Z00.00 ; Nocturia R35.1 ; Hypothyroidism E03.9 ; Chronic Sinusitis J32.9 ; Malignant neoplasm of thyroid gland C73 ; Tinea unguium B35.1 ; Tinea corporis B35.4 ; Other screening mammogram Z12.31 and Encounter for screening mammogram for breast cancer Z12.31 [facility] [address] [place] [address] 18 May, 2015 [facility] [address] [place] [address] May, [facility] [address] [place] [address] 16 Nov, 2014 Mammogram Screening V76.12 [facility] [address] [place] [address] 16 Nov, 2014 Adult Wellness Exam V70.0 ; Hypothyroidism 244.9 ; Nocturia 788.43 ; Malignant neoplasm of thyroid gland 193 ; Mammogram Screening V76.12 ; Fatigue 780.79 ; Wart 078.10 and Tinea unguium 110.1 [facility] [address] [place] [address] Nov, [facility] [address] [place] [address] Jun, [facility] [address] [place] [address] May, Hypothyroidism 244.9 [facility] [address] [place] [address] Jan, [facility] [address] [place] [address] Dec, Hypothyroidism 244.9 [facility] [address] [place] [address] Sep, [facility] [address] [place] [address] Sep, Adult Wellness Exam V70.0 ; Mammogram Screening V76.12 ; Hypothyroidism 244.9 ; Nocturia 788.43 ; Sinusitis 473.9 and Malignant neoplasm of thyroid gland 193 [facility] [address] [place] [address] Sep, Adult Wellness Exam V70.0 ; Sinusitis 473.9 ; Hypothyroidism 244.9 ; Nocturia 788.43 ; Malignant neoplasm of thyroid gland 193 and Mammogram Screening V76.12 [facility] [address] [place] [address] Jul, [facility] [address] [place] [address] Mar, Hypothyroidism 244.9 [facility] [address] [place] [phone] Feb, [facility] [address] [place] [address] Jan, [facility] [address] [place] [address] Jan, Hypothyroidism 244.9 [facility] [address] [place] [address] Dec, Hypothyroidism 244.9 [facility] [address] [place] [address] Jul, Adult Wellness Exam V70.0 ; Mammogram Screening V76.12 ; Hypothyroidism 244.9 ; Nocturia 788.43 ; Sinusitis 473.9 ; Malignant neoplasm of thyroid gland 193 and Fatigue 780.79 [facility] [place] [address] [place] [address] Jul, Adult Wellness Exam V70.0 ; Hypothyroidism 244.9 ; Nocturia 788.43 ; Mammogram Screening V76.12 ; Sinusitis 473.9 ; Malignant neoplasm of thyroid gland 193 and Fatigue 780.79 [facility] [place] [address] [place] [address] Apr, [facility] [place] [address] [place] [address] Apr, [facility] [place] [address] [place] [address] Mar, [facility] [place] [address] [place] [address] Mar, [facility] [place] [address] [place] [address] Jan, [facility] [place] [address] [place] [address] Jan, [facility] [place] [address] [place] [address] Dec, [facility] [place] [address] [place] [address] October, [facility] [place] [address] [place] [address] Nov, IMMUNIZATIONS No Known Immunizations SOCIAL HISTORY Never Assessed REASON FOR VISIT Re:RE: response to note on New Refill Request PLAN OF CARE VITAL [...]
--- OUTSIDE RECORDS SUMMARY | 2018-10-18 17:04 | XMS REPORT ---
Author Author Arvin Solano [facility] Address [address] [place] [address] Care Team Providers Care Electronic Operator Name Role Phone Arvin Solano Unavailable PROBLEMS Type Condition ICD9-CM Code [id number] Code Onset Dates Condition Status SNOMED Code Problem Tinea corporis B35.4 Active 10756170 Problem Tinea unguium B35.1 Active 094865137 Problem Chronic Sinusitis J32.9 Active 19041966 Problem Malignant neoplasm of thyroid gland C73 Active 759937062 Problem Hypothyroidism E03.9 Active 94631716 Problem Nocturia R35.1 Active 566121474 ALLERGIES Unknown Allergies SOCIAL HISTORY No smoking Hx information available PLAN OF CARE VITAL SIGNS MEDICATIONS Medication Instructions Dosage Frequency Start Date End Date Duration Status Levothyroxine Sodium 88MCG TAKE ONE TABLET BY MOUTH ONCE DAILY 90 Active RESULTS No Results PROCEDURES No Known procedures IMMUNIZATIONS No Known Immunizations
--- OUTSIDE RECORDS SUMMARY | 2018-10-18 17:04 | XMS REPORT ---
Author Author Arvin Solano [facility] eClinicalWorks Address Unknown Phone Unavailable Care Team Providers Care Jewel Hole Driller Name Role Phone Arvin Solano CP Unavailable Allergies, Adverse Reactions, Alerts Substance Reaction Event Type Tylenol abnormal smell sensation Drug Allergy Problems Problem Type Condition ICD-9 Code Onset Dates Condition Status Assessment Mammogram Screening V76.12 Active Assessment Nocturia 788.43 Active Assessment Malignant neoplasm of thyroid gland 193 Active Problem Hypothyroidism 244.9 Active Problem Nocturia 788.43 Active Problem Tinea unguium 110.1 Active Assessment Adult Wellness Exam V70.0 Active Assessment Hypothyroidism 244.9 Active Problem Sinusitis 473.9 Active Problem Malignant neoplasm of thyroid gland 193 Active Assessment Tinea unguium 110.1 Active Assessment Wart 078.10 Active Assessment Fatigue 780.79 Active Medications Medication Code System Code Instructions Start Date End Date Status Dosage Bactroban [facility] [address]-65 2 % Externally Twice a day October 05, 2013 1 application to affected area Synthroid [facility] [address]-86 88MCG Orally Once a day 1 tablet Procedures Procedure Coding System Code Date TSH CPT-4 76884 November 30, 2014 CBC CPT-4 52857 November 30, 2014 T4 CPT-4 98264 November 30, 2014 LIPID PROFILE CPT-4 12594 November 30, 2014 COMP PROFILE CPT-4 31768 November 30, 2014 PREV MED SEREST 40 CPT-4 25544 November 30, 2014 URINALYSIS CPT-4 45408 November 30, 2014 Vital Signs Date/Time: November 30, 2014 Blood Pressure Systolic 110 mm Hg Height 67.5 in Weight 174.8 lbs BMI 26.97 Index Blood Pressure Diastolic 71 mm Hg Results Name Result Date Reference Range Unit Abnormality Flag LIPID PROFILE ----HDL-DIRECT 65 40861618 45-65 MG/DL ----LDL-DIRECT 89 57357801 0-99 MG/DL ----CHOL/HDL 2.4 53478063 4.0-6.7 RATIO L ----CHOLESTEROL 159 20474853 50-200 MG/DL ----TRIGLYCERIDE 68 [id number] 30-150 MG/DL T4 ----T4 7.9 31526473 4.6-12.0 ?g/dL CBC ----MCV 93.8 28822953 81.0-96.0 FL ----HCT 40.6 99881527 36.0-46.0 % ----MCHC 33.0 66776148 32.0-35.0 G/DL ----MCH 30.9 85011142 27.0-33.0 PG ----EO# 0.1 [id number] 0.0-0.2 X10^3/UL ----PLT 188 75389463 130-400 X10^3 ----EO% 1.4 30619458 0.0-3.0 % ----RDW 13.4 67677199 11.5-15.5 % ----MO# 0.5 [id number] 0.1-0.6 X10^3/UL ----MO% 9.0 81201662 1.7-9.3 % ----LY# 1.4 77476467 1.2-3.4 X10^3/UL ----BA# 0.0 [id number] 0.0-0.1 X10^3/UL ----BA% 0.2 05807183 0.0-1.0 % ----HGB 13.4 76260895 11.6-16.0 G/DL ----RBC 4.33 50122305 3.90-5.20 X10^6 ----MPV 11.4 66409184 8.9-12.7 FL ----WBC 5.5 33455148 4.0-10.0 X10^3/UL ----NE% 63.3 36972165 42.2-75.2 % ----NE# 3.5 86904397 1.4-6.5 X10^3/UL ----LY% 25.9 68268137 20.5-51.1 % COMPREHENSIVE CHEM PROFILE ----SODIUM 140 51335058 133-145 MMOL/L ----TOTAL BILI 0.54 35160346 0.00-1.00 MG/DL ----CHLORIDE 103 58097057 96-108 MMOL/L ----POTASSIUM 3.9 35284711 3.3-5.1 MMOL/L ----CALCIUM 9.8 53314537 8.7-10.3 MG/DL ----AST/SGOT 19 77341253 5-40 U/L ----CO2 26 95404522 23-31 MMOL/L ----TOTAL PROTEIN 7.6 21515852 5.9-8.4 G/DL ----eGFR If Am 78 08407070 >60 ml/min/1.73m^2 ----ALBUMIN 4.4 46365150 3.2-5.2 G/DL ----eGFR If Non Am 65 62354913 >60 ml/min/1.73m^2 ----BUN 15 16670239 6-20 MG/DL ----ALT/SGPT 13 17058514 5-40 U/L ----ALK PHOS 67 83258221 34-114 U/L ----CREATININE 0.9 85941652 0.4-1.1 MG/DL ----GLUCOSE 89 47789066 60-99 MG/DL ----GLOBULIN 3.2 07836691 2.0-4.4 G/DL TSH ----TSH 0.99 20105042 0.40-5.00 ?IU/ML Urinalysis ----SQUAMOUS EPITH 0 14065519 FEW/HPF hpf ---- RBC 0 64275605 0-2/HPF hpf ----CRYSTALS 0 36210690 NONE/HPF hpf ----BACTERIA 0 05438154 NONE/HPF hpf ----OTHER CASTS 0 63924849 NONE/LPF lpf ----MUCOUS 0 67235697 NONE/HPF hpf ---- WBC 0 32089542 0-5/HPF hpf Summary Purpose eClinicalWorks Submission
--- OUTSIDE RECORDS SUMMARY | 2018-10-18 17:04 | XMS REPORT ---
Author Arvin Burger Organization [employer] Address Unknown Phone Unavailable Care Team Providers Care Sap Bpc Architect Name Role Phone Arvin Solano CP Unavailable Allergies No Known Allergies Problems Problem Type Condition Code Onset Dates Condition Status Problem Hypothyroidism 244.9 Active Problem Nocturia 788.43 Active Problem Tinea unguium 110.1 Active Problem Sinusitis 473.9 Active Problem Malignant neoplasm of thyroid gland 193 Active Medications Medication Code System Code Instructions Start Date End Date Status Dosage Synthroid [facility] [address]-11 88MCG Orally Once a day 1 tablet Results No Known Results Summary Purpose eClinicalWorks Submission
--- OUTSIDE RECORDS SUMMARY | 2018-10-18 17:04 | XMS REPORT ---
Author Arvin Burger Organization [employer] Address Unknown Phone Unavailable Care Team Providers Care Perennial House Manager Name Role Phone Arvin Solano CP Unavailable Allergies No Known Allergies Problems Problem Type Condition Code Onset Dates Condition Status Problem Hypothyroidism 244.9 Active Problem Nocturia 788.43 Active Problem Tinea unguium 110.1 Active Problem Sinusitis 473.9 Active Problem Malignant neoplasm of thyroid gland 193 Active Medications Medication Code System Code Instructions Start Date End Date Status Dosage [facility]th[facility] [address]-20 88MCG Orally Once a day 1 tablet Results No Known Results Summary Purpose eClinicalWorks Submission
--- OUTSIDE RECORDS SUMMARY | 2018-10-18 17:04 | XMS REPORT ---
Author Author Arvin Solano Organization [employer] Address Unknown Phone Unavailable Care Team Providers Care Steam Box Operator Name Role Phone Arvin Solano CP Unavailable Allergies No Known Allergies Problems Problem Type Condition Code Onset Dates Condition Status Problem Tinea unguium B35.1 Active Problem Hypothyroidism E03.9 Active Problem Tinea corporis B35.4 Active Problem Malignant neoplasm of thyroid gland C73 Active Problem Nocturia R35.1 Active Problem Chronic Sinusitis J32.9 Active Medications No Known Medications Results No Known Results Summary Purpose eClinicalWorks Submission
--- OUTSIDE RECORDS SUMMARY | 2018-10-18 17:05 | XMS REPORT ---
Author Arvin Burger [facility] eClinicalWorks Address Unknown Phone Unavailable Care Team Providers Care Senior Benefits Specialist Name Role Phone Arvin Solano CP Unavailable Allergies No Known Allergies Problems Problem Type Condition Code Onset Dates Condition Status Problem Tinea unguium B35.1 Active Problem Hypothyroidism E03.9 Active Problem Tinea corporis B35.4 Active Problem Malignant neoplasm of thyroid gland C73 Active Assessment Abnormal mammogram of right breast R92.8 Active Problem Nocturia R35.1 Active Problem Chronic Sinusitis J32.9 Active Medications No Known Medications Procedures Procedure Coding System Code Date COMPUTER AIDED DX CPT-4 30891 Feb 14, 2016 DX MAMMO, UNILATERAL CPT-4 09160 Feb 14, 2016 Results Name Result Date Reference Range Unit Abnormality Flag Mammogram, Dx Unilateral Summary Purpose eClinicalWorks Submission
--- OUTSIDE RECORDS SUMMARY | 2018-10-18 17:05 | XMS REPORT ---
Author Author Arvin Solano Organization [employer] Address Unknown Phone Unavailable Care Team Providers Care Cooker Loader Name Role Phone Arvin Solano CP Unavailable [...]
--- OUTSIDE RECORDS SUMMARY | 2018-10-18 17:05 | XMS REPORT ---
Author Author Arvin Solano [facility] Address [address] [place] [address] Care Team Providers Care Outdoor Adventure Guides Name Role Phone Arvin Solano Unavailable PROBLEMS Type Condition ICD9-CM Code SLY71-QP Code Onset Dates Condition Status SNOMED Code Problem Tinea corporis B35.4 Active 26269028 Problem Tinea unguium B35.1 Active 897614154 Problem Chronic Sinusitis J32.9 Active 03336387 Problem Malignant neoplasm of thyroid gland C73 Active 963862758 Problem Hypothyroidism E03.9 Active 62683126 Problem Nocturia R35.1 Active 101736319 ALLERGIES Unknown Allergies SOCIAL HISTORY No smoking Hx information available PLAN OF CARE VITAL SIGNS MEDICATIONS Unknown Medications RESULTS No Results PROCEDURES No Known procedures IMMUNIZATIONS No Known Immunizations
--- OUTSIDE RECORDS SUMMARY | 2018-10-18 17:05 | XMS REPORT ---
Author Author Arvin Solano Organization [employer] Address Unknown Phone Unavailable Care Team Providers Care Catering Operations Manager Name Role Phone Arvin Solano CP Unavailable Allergies No Known Allergies Problems Problem Type Condition ICD-9 Code Onset Dates Condition Status Problem Nocturia 788.43 Active Problem Sinusitis 473.9 Active Problem Hypothyroidism 244.9 Active Problem Malignant neoplasm of thyroid gland 193 Active Assessment Hypothyroidism 244.9 Active Medications No Known Medications Procedures Procedure Coding System Code Date FREE T4 CPT-4 12067 Jun 08, 2014 TSH CPT-4 42793 Jun 08, 2014 Results Name Result Date Reference Range Unit TSH ----TSH 0.45 [id number] -0.40-5.00 ?IU/ML FREE T4 ----Free T4 1.64 [id number] -0.93-1.70 ng/dL Summary Purpose eClinicalWorks Submission
--- OUTSIDE RECORDS SUMMARY | 2018-10-18 17:05 | XMS REPORT ---
Author Author Arvin Solano [facility] Address [address] [place] [address] Care Team Providers Care Biometric Screener Name Role Phone Arvin Solano Unavailable PROBLEMS Type Condition ICD9-CM Code HSW75-KY Code Onset Dates Condition Status SNOMED Code Problem Tinea corporis B35.4 Active 97091227 Problem Tinea unguium B35.1 Active 749955686 Problem Chronic Sinusitis J32.9 Active 21150627 Problem Malignant neoplasm of thyroid gland C73 Active 507241691 Problem Hypothyroidism E03.9 Active 80138500 Problem Nocturia R35.1 Active 045323574 ALLERGIES Unknown Allergies SOCIAL HISTORY No smoking Hx information available PLAN OF CARE VITAL SIGNS MEDICATIONS Medication Instructions Dosage Frequency Start Date End Date Duration Status Synthroid 88MCG Orally Once a day 1 tablet 24h 90 Active RESULTS No Results PROCEDURES No Known procedures IMMUNIZATIONS No Known Immunizations
--- OUTSIDE RECORDS SUMMARY | 2018-10-18 17:05 | XMS REPORT ---
Author Author Arvin Solano Organization [employer] Address Unknown Phone Unavailable Care Team Providers Care Drying Can Worker Name Role Phone Arvin Solano CP Unavailable [...]
--- OUTSIDE RECORDS SUMMARY | 2018-10-18 17:05 | XMS REPORT ---
Author Author Arvin Solano [facility] Address [address] [place] [address] Care Team Providers Care Welcome Wagon Hostess Name Role Phone Arvin Solano Unavailable PROBLEMS Type Condition ICD9-CM Code [id number]-KZ Code Onset Dates Condition Status SNOMED Code Problem Tinea corporis B35.4 Active 68904188 Problem Tinea unguium B35.1 Active 696474292 Problem Chronic Sinusitis J32.9 Active 98487385 Problem Malignant neoplasm of thyroid gland C73 Active 016081315 Problem Hypothyroidism E03.9 Active 23858203 Problem Nocturia R35.1 Active 879469954 ALLERGIES Unknown Allergies SOCIAL HISTORY No smoking Hx information available PLAN OF CARE VITAL SIGNS MEDICATIONS Unknown Medications RESULTS No Results PROCEDURES No Known procedures IMMUNIZATIONS No Known Immunizations
--- OUTSIDE RECORDS SUMMARY | 2018-10-18 17:05 | XMS REPORT | Continuity of Care Document ---
Author Organization Unknown Address Unknown Allergies Active Description Code Type Severity Reaction Onset Reported/Identified Relationship to Patient Clinical Status Yes No Known Allergies NKMA N/A N/A Yes Tylenol NKMA N/A N /A 08/04/2018 Yes Tylenol NKMA N/A N /A 09/25/2018 Medications Medication Packaging Start Date Stop Date Route Dosage Sig metoclopramide(Reglan) 2 mL 201808/05/2018 IV Push 10 mg 10 mg=2 mL, IV Push, q6hr, PRN: Nausea HYDROcodone-acetaminophen(Burton 5 mg-325 mg oral tablet) 1 tabs 08/04/2018 08/05/2018 Oral 1 tabs, Oral, q4hr, PRN: Pain Moderate (4-6 ) morphine(morphine) 0.5 mL 201808/05/2018 IV Push 1 mg 1 mg=0.5 mL, IV Push, q2hr, PRN: Pain Severe (7-10) ondansetron(Zofran) 1 tabs 201808/05/2018 Oral 4 mg 4 mg=1 tabs, Oral, q6hr, PRN: Nausea polyethylene glycol 3350(MiraLax) 1 packets 08/04/2018 08/05/2018 Oral 17 g 17 g=1 packets, Oral, Daily, PRN: Constipation calcium carbonate(Tums) 1 tabs 08/05/2018 Oral 500 mg 500 mg=1 tabs, Oral, q4hr, PRN: GERD/Heartburn senna(Senokot) 1 tabs 08/04/2018 08/05/2018 Oral 8.6 mg 8.6 mg=1 tabs, Oral, Daily, PRN: Constipation Sodium Chloride 0.9%(Sodium Chloride 0.9% 1,000 mL) 1,000 mL 08/04/2018 08/04/2018 IV 80 mL/hr, IV acetaminophen(acetaminophen) 2 tabs 08/04/2018 08/05/2018 Oral 650 mg 650 mg=2 tabs, Oral, q4hr, PRN: Pain Mild (1-3) docusate-senna(Senokot S 50 mg-8.6 mg oral tablet) 1 tabs 08/04/2018 08/05/2018 Oral 1 tabs, Oral, Daily, PRN: Constipation levothyroxine(levothyroxine 88 mcg (0.088 mg) oral tablet) 1 tabs 08/04/2018 Oral 88 mcg 88 mcg=1 tabs, Oral, qAM, 0 Refill(s) ibuprofen(ibuprofen) 08/04/2018 Oral 400 mg 400 mg, Oral, Once, PRN: as needed for pain, 0 Refill(s) glucosamine(glucosamine) 1 tabs Oral 1 tabs , Oral, qPM, 0 Refill(s) levothyroxine(levothyroxine) 1 tabs 08/05/2018 08/05/2018 Oral 88 mcg 88 mcg=1 tabs, Oral, qAM diphenhydrAMINE(Benadryl) 2018 Oral 25 mg 25 mg , Oral, Daily, PRN: as needed for insomnia, 0 Refill(s) midazolam(Versed) 1 mL 09/25/2018 09/25/2018 IV Push 1 mg 1 mg=1 mL, IV Push, q5min, PRN: Sedation fentaNYL(Sublimaze) 1 mL 201809/25/2018 IV Push 50 mcg 50 mcg=1 mL, IV Push, q5min, PRN: Sedation Sodium Chloride 0.9%(Sodium Chloride 0.9% 500 mL) 500 mL 09/25/2018 09/25/2018 IV kvo, IV HYDROcodone-acetaminophen(Burton 5 mg-325 mg oral tablet) 1 tabs 09/25/2018 09/25/2018 Oral 1 tabs, Oral, q4hr, PRN: Pain Problems Date Dx Coded Attending Type Code Diagnosis Diagnosed By 08/06/2018October,Adrian E03.9 Hypothyroidism, unspecified 08/06/2018October,Adrian Reason K66.1 Hemoperitoneum 08/06/2018October,Adrian Z79.899 Other oil heaterman (current) drug therapy 08/06/2018October,Adrian Final Z85.850 Personal history of malignant neoplasm of thyroid 09/30/2018 Curt Esa Final 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 Results Radiology Report from [id number] on 09/25/2018 18:18:00 Reason For ExamOther, (Free text in Reason for Exam field)REPORTINDICATION: Right retroperitoneal mass.PROCEDURE: The patient was placed in a prone position on the CT table.Preliminary scans through the right retroperitoneum were performed. Anappropriate entry site was selected. Using maximal sterile barrier technique andlocal anesthesia under CT guidance, a 17-gauge guide needle was introduced intothe retroperitoneal mass. Core biopsies were obtained with an 18-gauge coaxialneedle. The patient tolerated the procedure well. Because of the painful natureof the procedure, moderate IV conscious sedation was administered withcontinuous physiologic monitoring done by the radiology nurse under mysupervision for 45 minutes.IMPRESSION: Successful CT-guided retroperitoneal mass biopsy.Dictated on workstation:[id number] Line FINAL DICTATED BY: DANA HARRY MDDICTATED DT/TM: 2018 4:22 PMSIGNED BY: DANA HARRY MDSIGNED (ELECTRONIC SIGNATURE): 04/2019 5:18 PMTECHNOLOGIST: GRACIE SALAZAR RT (R)(CT) Radiology Report from [id number] on 10/11/2018 04:20:00 Reason For ExamCongestionREPORTEXAMINATION: Portable chest.INDICATION: Congestion.COMPARISON: Correlation made with a PET scan performed earlier in the same day.FINDINGS: The previously described density within the lingular segment of theleft upper lobe is not well delineated on this examination. The lungs otherwiseappear clear. There is no effusion. There is no pneumothorax. Heart size andmediastinal contours appear appropriate. Pulmonary vascularity appears withinnormal limits.IMPRESSION:1. No radiographic evidence of an acute cardiopulmonary process.2. The previously described lingular nodule within the left upper lobe withintermediate metabolic activity is not well delineated on this radiograph andwill require further followup.Dictated on workstation: [id number] Line FINAL DICTATED BY: CLEMENTINA LOMAS LDICTATED DT/TM: 10/09/2018 6:22 PMSIGNED BY: CLEMENTINA LOMAS MDSIGNED (ELECTRONIC SIGNATURE): 10/09/2018 8:03 PMTECHNOLOGIST: YORDY SCHUSTER Radiology Report from [id number] on 10/11/2018 04:21:00 Reason For ExamInsertion Implantable Venous Access Port 'STARR CATH INSERTION' REPORTImpression: Intraoperative fluoroscopy was utilized by Dr. Keith duringplacement of a right internal jugular Port-A-Cath.Tech Comments: Fluoroscopy time (in minutes): .28# of Fluoro Images 1Dictated on workstation: [id number] Line FINAL DICTATED BY: CLEMENTINA LOMAS DT/TM: 10/09/2018 9:34 PMSIGNED BY: CLEMENTINA LOMASIGNED (ELECTRONIC SIGNATURE): 10/09/2018 9:35 PMTECHNOLOGIST: DAVIE LAZAR ARRMillie Encounters ACCT No. Visit Date/Time Discharge Status Pt. Type Provider Facility Loc./Unit Complaint [id number] 09/25/2018 07:36:00 09/25/2018 13:55:00 DIS Outpatient Abidalorenschroeder Clay [facility] JACU Hemoperitoneum [id number] 08/04/2018 14:53:00 08/05/2018 09:58:00 ACT Outpatient Jessica Adrian [facility] on [facility] F4SW Right Retro Peritoneal Bleed [id number] 10/09/2018 12:31:00 ACT Inpatient Jones Chau [facility] on [facility] F7N Non Hodgkins Lymphoma [id number] 09/26/2018 05:18:31 Document Registration [id number] 08/05/2018 05:21:50 Document Registration [id number] 10/10/2018 10:59:01 10/10/2018 23:59:59 CLS Outpatient Tera Keith MD [id number] 09/17/2018 08:55:00 09/17/2018 23:59:00 DIS Outpatient Esa Elias [facility] [place] PERINEPHRIC MASS
--- OUTSIDE RECORDS SUMMARY | 2018-10-18 17:05 | XMS REPORT ---
Author Author Arvin Solano Organization [facility] Address [address] [place] [address] Care Team Providers Care Inside Horticultural Specialty Grower Name Role Phone Arvin Solano Unavailable PROBLEMS Type Condition ICD9-CM Code KQK39-EU Code Onset Dates Condition Status SNOMED Code Problem Tinea corporis B35.4 Active 35182102 Problem Tinea unguium B35.1 Active 124689344 Problem Chronic Sinusitis J32.9 Active 89789783 Problem Malignant neoplasm of thyroid gland C73 Active 014940794 Problem Hypothyroidism E03.9 Active 45442583 Problem Nocturia R35.1 Active 249050745 ALLERGIES No Information SOCIAL HISTORY Never Assessed PLAN OF CARE VITAL SIGNS MEDICATIONS Unknown Medications RESULTS Name Result Date Reference Range Mammogram, bilateral screening 2017-04-17 PROCEDURES Procedure Date Ordered Result Body Site SCR MAMMO BI INCL CAD Apr 17, 2017 IMMUNIZATIONS No Known Immunizations MEDICAL (GENERAL) HISTORY Type Description Date Medical History Hypothyroidism Medical History Thyroid Cancer Medical History Allergic Rhinitis Surgical History thyroidectomy for cancer Surgical History cervical polypectomy Surgical History Colonoscopy w/Dr. Mena-repeat 5 years 02/23/13
--- OUTSIDE RECORDS SUMMARY | 2018-10-18 17:05 | XMS REPORT ---
Author Arvin Burger [facility] Address [address] [place] [address] Care Team Providers Care Consultant Technology Name Role Phone Arvin Solano Unavailable PROBLEMS Type Condition ICD9-CM Code CUL42-KR Code Onset Dates Condition Status SNOMED Code Problem Tinea corporis B35.4 Active 11343779 Problem Tinea unguium B35.1 Active 476737392 Problem Chronic Sinusitis J32.9 Active 52856275 Problem Malignant neoplasm of thyroid gland C73 Active 466854357 Problem Hypothyroidism E03.9 Active 85483953 Problem Nocturia R35.1 Active 902798171 ALLERGIES No Information SOCIAL HISTORY Never Assessed PLAN OF CARE VITAL SIGNS MEDICATIONS Medication Instructions Dosage Frequency Start Date End Date Duration Status Synthroid 88MCG Orally Once a day 1 tablet 24h 90 Active RESULTS No Results PROCEDURES No Known procedures IMMUNIZATIONS No Known Immunizations MEDICAL (GENERAL) HISTORY Type Description Date Medical History Hypothyroidism Medical History Thyroid Cancer Medical History Allergic Rhinitis Surgical History thyroidectomy for cancer Surgical History cervical polypectomy Surgical History Colonoscopy w/Dr. Mena-repeat 5 years 02/23/13
--- NOTE | 2018-10-18 17:21 | ED General ---
General Stated Complaint: KIDNEY FAILURE Source of Information: Patient Exam Limitations: No Limitations History of Present Illness Date Seen by Provider: October 18, 2018 Time Seen by Provider: 17:17 Initial Comments To ER per private vehicle from urgent care with reports of possible kidney failure. She presented to urgent care today for fatigue, lower extremity swelling bilaterally for the past week, reduction in frequency of urination. She was found in urgent care to have edema and proteinuria and was sent to the emergency room for further evaluation. She was diagnosed with non-Hodgkin's lymphoma at cancer treatment Center in [facility], Dr Star Quiñonez. This diagnosis was a few weeks ago, she had a port placed 1 week ago and was started on CHOP chemotherapy and received her first treatment last Saturday and Saturday, 8 and 7 days ago respectively. She's had some swelling to bilateral lower extremities since then. She denies any fevers but has had some chills. She reports her most recent hemoglobin was around 8. Timing/Duration: 2-3 Days, Getting Worse Severity: Moderate Associated Systoms: Malaise; No Nausea/Vomiting; Weakness Allergies and Home Medications Allergies Coded Allergies: acetaminophen (Verified Allergy, Unknown, 10/18/18) loratadine (Verified Allergy, Unknown, 10/18/18) Home Medications Levofloxacin 500 Mg Tablet, 500 MG PO DAILY Prescribed by: ADRIENNE BURDEN on 10/18/18 2393 Patient Home Medication List Home Medication List Reviewed: Yes Review of Systems Review of Systems Constitutional: see HPI, chills, malaise, weakness EENTM: see HPI Respiratory: no symptoms reported Cardiovascular: see HPI; No chest pain; edema Genitourinary: no symptoms reported Musculoskeletal: no symptoms reported Skin: no symptoms reported Psychiatric/Neurological: No Symptoms Reported Hematologic/Lymphatic: No Symptoms Reported Past Bshqroe-Gfmngs-Iicnil Hx Patient Social History Recent Foreign Travel: No Contact w/Someone Who Travel: No Physical Exam Vital Signs Vital Signs - First Documented 10/18/18 16:55 Temp 98.5 Pulse 96 Resp 18 B/P (MAP) 131/81 (98) Pulse Ox 97 O2 Delivery Room Air Capillary Refill : Height, Weight, BMI Height: '" Weight: lbs. oz. kg; BMI Method: General Appearance: No Apparent Distress, WD/WN, Other (ambulated to room 9 without difficulty, alert and oriented speaks in full sentences and is overall nontoxic appearing.) Eyes: Bilateral Eye Normal Inspection, Bilateral Eye PERRL, Bilateral Eye EOMI HEENT: PERRL/EOMI Neck: Full Range of Motion, Normal Inspection Respiratory: Normal Breath Sounds, No Accessory Muscle Use, No Respiratory Distress Cardiovascular: Regular Rate, Rhythm, Normal Peripheral Pulses Gastrointestinal: Normal Bowel Sounds, Non Tender, Soft Extremity: Normal Capillary Refill, Pedal Edema Neurologic/Psychiatric: Alert, Oriented x3 Progress/Results/Core Measures Suspected Sepsis SIRS Temperature: Pulse: Respiratory Rate: Laboratory Tests 10/18/18 17:17: White Blood Count 0.9*L Blood Pressure / Mean: Laboratory Tests 10/18/18 17:17: Creatinine 0.80, Platelet Count 184, Total Bilirubin 0.7 Results/Orders Lab Results Laboratory Tests Test 10/18/18 17:17 10/18/18 17:30 Range/Units White Blood Count 0.9 *L 4.3-11.0 10^3/uL Red Blood Count 3.16 L 4.35-5.85 10^6/uL Hemoglobin 9.1 L 11.5-16.0 G/DL Hematocrit 28 L 35-52 % Mean Corpuscular Volume 89 80-99 FL Mean Corpuscular Hemoglobin 29 25-34 PG Mean Corpuscular Hemoglobin Concent 33 32-36 G/DL Red Cell Distribution Width 16.0 H 10.0-14.5 % Platelet Count 184 130-400 10^3/uL Mean Platelet Volume 10.2 7.4-10.4 FL Neutrophils (%) (Auto) 32 L 42-75 % Lymphocytes (%) (Auto) 28 12-44 % Monocytes (%) (Auto) 22 H 0-12 % Eosinophils (%) (Auto) 17 H 0-10 % Basophils (%) (Auto) 1 0-10 % Neutrophils # (Auto) 0.3 L 1.8-7.8 X 10^3 Lymphocytes # (Auto) 0.2 L 1.0-4.0 X 10^3 Monocytes # (Auto) 0.2 0.0-1.0 X 10^3 Eosinophils # (Auto) 0.1 0.0-0.3 10^3/uL Basophils # (Auto) 0.0 0.0-0.1 10^3/uL Neutrophils % (Manual) 26 % Lymphocytes % (Manual) 35 % Monocytes % (Manual) 21 % Eosinophils % (Manual) 7 % Basophils % (Manual) 1 % Metamyelocytes % 3 % Band Neutrophils 7 % Nucleated Red Blood Cells 2 Blood Morphology Comment NORMAL Sodium Level 138 135-145 MMOL/L Potassium Level 3.4 L 3.6-5.0 MMOL/L Chloride Level 105 98-107 MMOL/L Carbon Dioxide Level 22 21-32 MMOL/L Anion Gap 11 5-14 MMOL/L Blood Urea Nitrogen 13 7-18 MG/DL Creatinine 0.80 0.60-1.30 MG/DL Estimat Glomerular Filtration Rate > 60 BUN/Creatinine Ratio 16 Glucose Level 89 70-105 MG/DL Uric Acid 2.8 2.6-7.2 MG/DL Calcium Level 9.1 8.5-10.1 MG/DL Corrected Calcium 9.5 8.5-10.1 MG/DL Phosphorus Level 3.7 2.3-4.7 MG/DL Magnesium Level 1.9 1.8-2.4 MG/DL Total Bilirubin 0.7 0.1-1.0 MG/DL Aspartate Amino Transf (AST/SGOT) 19 5-34 U/L Alanine Aminotransferase (ALT/SGPT) 17 0-55 U/L Alkaline Phosphatase 66 40-136 U/L B-Type Natriuretic Peptide 92.5 <100.0 PG/ML Total Protein 6.3 L 6.4-8.2 GM/DL Albumin 3.5 3.2-4.5 GM/DL Thyroid Stimulating Hormone (TSH) 12.33 H 0.35-4.94 UIU/ML Free Thyroxine 1.01 0.70-1.48 NG/DL Urine Color YELLOW Urine Clarity CLEAR Urine pH 6.5 5-9 Urine Specific [place] 1.005 L 1.016-1.022 Urine Protein NEGATIVE NEGATIVE Urine Glucose (UA) NEGATIVE NEGATIVE Urine Ketones NEGATIVE NEGATIVE Urine Nitrite NEGATIVE NEGATIVE Urine Bilirubin NEGATIVE NEGATIVE Urine Urobilinogen NORMAL NORMAL MG/DL Urine Leukocyte Esterase NEGATIVE NEGATIVE Urine RBC (Auto) NEGATIVE NEGATIVE Urine RBC NONE /HPF Urine WBC NONE /HPF Urine Squamous Epithelial Cells RARE /HPF Urine Renal Epithelial Cells 5-10 /HPF Urine Crystals NONE /LPF Urine Bacteria TRACE /HPF Urine Casts NONE /LPF Urine Mucus NEGATIVE /LPF Urine Culture Indicated NO My Orders Orders - ADRIENNE BURDEN APRN Thyroid Stimulating Hormone (10/18/18 17:12) Free T4 (Free Thyroxine) (10/18/18 17:12) Cbc With Automated Diff (10/18/18 17:12) Comprehensive Metabolic Panel (10/18/18 17:12) Ua Culture If Indicated (10/18/18 17:12) Phosphorus (10/18/18 17:12) Magnesium (10/18/18 17:12) Uric Acid (10/18/18 17:12) BNP (10/18/18 17:15) Manual Differential (10/18/18 17:17) Levofloxacin Tablet (Levaquin Tablet) (10/18/18 18:15) Vital Signs/I&O 10/18/18 16:55 Temp 98.5 Pulse 96 Resp 18 B/P (MAP) 131/81 (98) Pulse Ox 97 O2 Delivery Room Air Capillary Refill : Departure Communication (Admissions) I don't see any evidence of tumor lysis syndrome which she would be at risk for given the current timeframe post initiation of chemotherapy for non-Hodgkin's lymphoma. Will discuss with her oncology team.ANC 351. 1804-I spoke with Dr. Weir who is on-call for Dr. Quiñonez. Agrees patient can go home, she should call him back if she develops any fevers or worsening pain. Given the history of flank pain yesterday that is currently resolved, low white count, he would recommend Levaquin 500 mg daily as prophylaxis 8-I discussed my conversation with the patient. She states that she was given Levaquin about 2 weeks ago for pneumonia, she stopped taking it after 3 days because it was causing her neuropathy and her tendons to "pop". Because of that she states she is not going to take this. She has some amoxicillin, 19 of them left at home which she states are not outdated. She will restart taking them tonight Impression Primary Impression: Neutropenia Qualified Codes: D70.9 - Neutropenia, unspecified Additional Impression: chemotherapy side effect Disposition: 01 HOME, SELF-CARE Condition: Stable Departure-Patient Inst. Decision time for Depature: 18:05 Referrals: NO,LOCAL PHYSICIAN (PCP/Family) Primary Care Physician Patient Instructions: Neutropenia Add. Discharge Instructions: 1. I spoke with Dr. Weir who is on-call for Dr. Quiñonez. He recommends starting an antibiotic called Levaquin daily. Call him back for any recurrent worsening pain or development of any fevers. Scripts Levofloxacin (Levaquin) 500 Mg Tablet 500 MG PO DAILY, #7 TAB Prov: ADRIENNE BURDEN APRN 10/18/18 ADRIENNE BURDEN APRN October 18, 2018 17:21
[2018-10-18 17:29] LABS: BASOPHILS % (AUTO) 1 % (0-10); EOSINOPHILS # (AUTO) 0.1 10^3/uL (0.0-0.3); EOSINOPHILS % (AUTO) 17 % (0-10); HEMATOCRIT 28 % (35-52); HEMOGLOBIN 9.1 G/DL (11.5-16.0); LYMPHOCYTES # (AUTO) 0.2 X 10^3 (1.0-4.0); LYMPHOCYTES % (AUTO) 28 % (12-44); MEAN CORPUSCULAR HEMOGLOBIN 29 PG (25-34); MEAN CORPUSCULAR HGB CONC 33 G/DL (32-36); MEAN CORPUSCULAR VOLUME 89 FL (80-99); MEAN PLATELET VOLUME 10.2 FL (7.4-10.4); MONOCYTES # (AUTO) 0.2 X 10^3 (0.0-1.0); MONOCYTES % (AUTO) 22 % (0-12); NEUTROPHILS # (AUTO) 0.3 X 10^3 (1.8-7.8); NEUTROPHILS % (AUTO) 32 % (42-75); PLATELET COUNT 184 10^3/uL (130-400)
[2018-10-18 17:30] LABS: WHITE BLOOD COUNT 0.9 10^3/uL (4.3-11.0)
[2018-10-18 17:36] LABS: BILIRUBIN,URINE NEGATIVE (NEGATIVE); CLARITY,URINE CLEAR; COLOR,URINE YELLOW; GLUCOSE, URINE (UA) NEGATIVE (NEGATIVE); KETONES,URINE NEGATIVE (NEGATIVE); LEUKOCYTE ESTERASE ,URINE NEGATIVE (NEGATIVE); NITRITE,URINE NEGATIVE (NEGATIVE); PH,URINE 6.5 (5-9); PROTEIN,URINE NEGATIVE (NEGATIVE); UROBILINOGEN,URINE NORMAL (NORMAL)
[2018-10-18 17:47] LABS: ALANINE AMINOTRANSFERASE 17 U/L (0-55); ALBUMIN 3.5 GM/DL (3.2-4.5); ALKALINE PHOSPHATASE 66 U/L (40-136); BILIRUBIN,TOTAL 0.7 MG/DL (0.1-1.0); BUN/CREATININE RATIO 16; CALCIUM 9.1 MG/DL (8.5-10.1); CARBON DIOXIDE 22 MMOL/L (21-32); CHLORIDE 105 MMOL/L (98-107); GFR ESTIMATED > 60; GLUCOSE 89 MG/DL (70-105); MAGNESIUM 1.9 MG/DL (1.8-2.4); PHOSPHORUS 3.7 MG/DL (2.3-4.7); POTASSIUM 3.4 MMOL/L (3.6-5.0); SODIUM 138 MMOL/L (135-145); TOTAL PROTEIN 6.3 GM/DL (6.4-8.2); URIC ACID 2.8 MG/DL (2.6-7.2)
[2018-10-18 17:48] LABS: BACTERIA,URINE TRACE /HPF; SQUAMOUS EPITHELIAL CELL,UR RARE /HPF
[2018-10-18] MEDS ORDERED: LEVO500T2 PO (18:07)
[2018-10-18 18:08] LABS: BAND NEUTROPHILS 7 %; BASOPHILS % (MANUAL) 1 %; EOSINOPHILS % (MANUAL) 7 %; FREE T4 (FREE THYROXINE) 1.01 NG/DL (0.70-1.48); LYMPHOCYTES % (MANUAL) 35 %; METAMYELOCYTES % 3 %; MONOCYTES % (MANUAL) 21 %; NEUTROPHILS % (MANUAL) 26 %
[2018-10-18 18:09] LABS: NUCLEATED RED BLOOD CELLS 2
[2018-10-18 18:10] LABS: RBC MORPH NORMAL
[2018-10-18] MEDS ORDERED: LEVOFLOXACIN 500 MG TAB (LEVAQUIN) PO ONE (18:15)
[2018-10-18 18:21] VITALS: BP 113/75
== END 2018-10-18 18:21 | disposition home or self-care (01) ==
LOC: ER 16:58
DX: D70.9 Neutropenia, unspecified (principal); T45.1X5A Adverse effect of antineoplastic and immunosuppressive drugs, initial encounter; C85.80 Other specified types of non-Hodgkin lymphoma, unspecified site; Z88.8 Allergy status to other drugs, medicaments and biological substances
CPT/HCPCS: 36415; 80053; 81000; 83735; 83880; 84100; 84439; 84443; 84550; 85007; 85027; 99282

== ENCOUNTER → 2019-09-01 | Outpatient (CLI) | payer BC ==
[~2019-09-01] MED LIST: LEVO500T2 PO
--- NOTE | 2019-09-01 14:46 | Diagnostic Imaging Report ---
PROCEDURE: CT abdomen and pelvis with and without contrast. TECHNIQUE: Precontrast acquisitions were acquired through the abdomen and pelvis. Multiple contiguous axial images were obtained through the abdomen and pelvis after the administration of intravenous contrast. Auto Exposure Controls were utilized during the CT exam to meet ALARA standards for radiation dose reduction. INDICATION: Lymphoma and also history of thyroid cancer. COMPARISON: Correlation is made with PET/CT study from 10/09/2018. FINDINGS: The lung bases are clear. No discrete liver mass is identified. The gallbladder is unremarkable. No biliary ductal dilatation is seen. The pancreas and spleen are unremarkable. No definite adrenal mass is seen. Left kidney is unremarkable. There is abnormal soft tissue in the right perirenal space, surrounding the right kidney. This has significantly decreased when compared with PET/CT study from 10/09/2018. The suprarenal component measures approximately 6.1 cm AP compared with 10.5 cm on prior exam. The component surrounding the right kidney has thinned as well. The component that extended below the right kidney into the pelvis on prior imaging is no longer appreciated. No aortocaval or left periaortic lymphadenopathy is seen. Aorta is normal in caliber. Small and large bowel loops are normal in caliber. No obstruction is seen. There is no free fluid or fluid collection identified. Visualized bony structures are unremarkable. IMPRESSION: Significant reduction in size of right-sided retroperitoneal mayank mass, now primarily in the perirenal and subhepatic space. No new abnormality is identified. Dictated by: Dictated on workstation # [id number]
== END ==
LOC: RAD 13:51
DX: C83.33 Diffuse large B-cell lymphoma, intra-abdominal lymph nodes (principal); Z85.850 Personal history of malignant neoplasm of thyroid
CPT/HCPCS: 74178

== ENCOUNTER → 2023-02-28 | Outpatient (CLI) | payer MEDICARE ==
--- NOTE | 2023-02-28 18:24 | Diagnostic Imaging Report ---
EXAMINATION: Left foot radiographs, 3 views. COMPARISON: None. HISTORY: 68-year-old female, left foot pain. FINDINGS: There is dorsal soft tissue swelling at the level of the metatarsals. There is periosteal reaction at the level of the proximal to mid aspect of the third metatarsal with a nondisplaced fracture line at the level of the proximal metaphysis. No additional definite fracture is identified. The joint spaces are well preserved. There is a tiny calcaneal heel spur. IMPRESSION: 1. Nondisplaced fracture of the proximal metaphysis of the third metatarsal with periosteal reaction. This may be stress related. 2. Nonspecific dorsal soft tissue swelling centered at the level of the metatarsals. Dictated by: Dictated on workstation # [id number]
== END ==
LOC: RAD 15:55
PROVIDERS: ATTEND Family Medicine
DX: M79.672 Pain in left foot (principal); M79.89 Other specified soft tissue disorders
CPT/HCPCS: 73630

== ENCOUNTER 2023-04-03 15:22 | Emergency (ER) | payer MEDICARE ==
[~2023-04-03] VITALS: Ht 170.1 cm; Wt 81.6 kg
--- NOTE | 2023-04-03 15:42 | ED General ---
General Chief Complaint: Fever-Adult/Adol Stated Complaint: FEVER, OXYGEN LEVEL ISSUE, FLU-LIKE SYMPTOMS Nursing Triage Note: PT AMB TO RM 10 WITH CC OF FEVER, COUGH, DIARRHEA AND VOMITING SINCE 03/30. PT STATES WAS SEEN AT [facility] WAITER/WAITRESS TAKE OUT AND SENT TO ED FOR LOW O2 STAT. PT DENIES SOA AND NO RESP DISRESS NOTED AT TIME OF TRIAGE. PT STATES TESTED NEGATIVE FOR COVID AND FLU WAITER/WAITRESS TAKE OUT AT [facility]. PT A&OX4 Source of Information: Patient Exam Limitations: No Limitations History of Present Illness Date Seen by Provider: Apr 03, 2023 Time Seen by Provider: 15:41 Initial Comments Patient is a 68-year-old female with a history of B-cell lymphoma currently cancer free last chemo 2 months ago who presents to the ED for flulike symptoms. Symptoms started this past Saturday with vomiting and diarrhea. She reports at least at 18 episodes of diarrhea without any blood or mucus. 2 episodes of vomiting. Had some abdominal discomfort but that improved. She states she has been feeling very tired and weak over the past 3 days. She states that she did have a sinus type infection a few weeks prior and was placed on doxycycline. she states she was seen at [facility] today noted her oxygen level dropping down to 93 but did improve with ambulation. She does report a cough but denies of any specific chest pain or shortness of breath. Denies of any urinary symptoms. She has been taking [id number] medication without much improvement. Denies history of coronary artery disease, CHF or COPD or diabetes. She did test negative for COVID influenza today. She denies of any current visual changes, sore throat, ear pain, neck pain, unilateral muscle weakness or sensory changes. She does report a fever of 103 at home. She does follow oncology at [place] Allergies and Home Medications Allergies Coded Allergies: acetaminophen (Verified Allergy, Unknown, 10/18/18) loratadine (Verified Allergy, Unknown, 10/18/18) Patient Home Medication List Home Medication List Reviewed: Yes Amoxicillin/Potassium Clav (Amox Tr-K Clv 875-125 mg Tab) 875 Mg-125 Mg Tablet, 1 EACH PO BID Prescribed by: GIANA HUDDLESTON on 04/03/231817 Apixaban (Eliquis) 5 Mg Tablet, 5 MG PO BID Prescribed by: GIANA HUDDLESTON on 04/03/231808 Levofloxacin (Levaquin) 500 Mg Tablet, 500 MG PO DAILY Prescribed by: ADRIENNE BURDEN on 10/18/181806 Metoprolol Succinate (Metoprolol Succinate) 25 Mg Tab.er.24h, 25 MG PO DAILY Prescribed by: GIANA HUDDLESTON on 04/03/231808 Review of Systems Review of Systems Constitutional: No chills, No diaphoresis; fever, malaise, weakness EENTM: No ear pain, No blurred vision Respiratory: cough; No dyspnea on exertion Cardiovascular: No chest pain, No edema Gastrointestinal: No abdominal pain; diarrhea, nausea, vomiting Genitourinary: No decreased output, No dysuria, No frequency Musculoskeletal: No back pain, No joint pain Skin: No change in color, No change in hair/nails All Other Systems Reviewed Negative Unless Noted: Yes Past Kvgzrih-Nkxsly-Nfnukh Hx Patient Social History Tobacco Use?: No Substance use?: No Alcohol Use?: No Immunizations Up To Date Tetanus Booster (TDap): Unknown PED Vaccines UTD: Yes Past Medical History Surgery/Hospitalization HX: B-CELL CANCER, THYROID REMOVED D/T CANCER Surgeries: Yes (PORT PLACEMENT) Respiratory: No Cardiac: No Neurological: No Genitourinary: Yes (PERIRENAL LYMPHOMA) Renal Failure Gastrointestinal: No Musculoskeletal: No Endocrine: Yes Hypothyroidsim HEENT: No Cancer: Yes Kidney Psychosocial: No Blood Disorders: No Physical Exam Vital Signs Vital Signs - First Documented 04/03/23 15:31 Temp 36.5 Pulse 125 Resp 16 B/P (MAP) 108/89 (95) Pulse Ox 95 O2 Delivery Room Air Capillary Refill : Less Than 3 Seconds Height, Weight, BMI Height: 5'7.00" Weight: 188lbs. oz. 85.831430qh; 28.00 BMI Method:Stated General Appearance: No Apparent Distress, WD/WN Eyes: Bilateral Eye Normal Inspection, Bilateral Eye EOMI, Bilateral Eye Abnormal EOM HEENT: PERRL/EOMI, TMs Normal, Normal ENT Inspection, Pharynx Normal Neck: Full Range of Motion, Normal Inspection, Non Tender, Supple Respiratory: Chest Non Tender, Lungs Clear, Normal Breath Sounds, No Accessory Muscle Use, No Respiratory Distress Gastrointestinal: Normal Bowel Sounds, No Organomegaly, No Pulsatile Mass, Non Tender Extremity: Normal Capillary Refill, Normal Inspection, Normal Range of Motion, Non Tender Neurologic/Psychiatric: Alert, Oriented x3, No Motor/Sensory Deficits, Normal Mood/Affect, release specialist II-XII Norm as Tested Skin: Normal Color, Warm/Dry Focused Exam Lactate Level 04/03/23 15:46: Lactic Acid Level 0.96 Lactic Acid Level Laboratory Tests Test 04/03/23 15:46 Lactic Acid Level 0.96 MMOL/L (0.50-2.00) Progress/Results/Core Measures Suspected Sepsis SIRS Temperature: Pulse: 125 Respiratory Rate: 16 Laboratory Tests 04/03/23 15:46: White Blood Count 10.2 Blood Pressure 108 /89 Mean: 95 04/03/23 15:46: Lactic Acid Level 0.96 Laboratory Tests 04/03/23 15:46: Creatinine 0.86, INR Comment 1.3, Platelet Count 159, Total Bilirubin 1.1H Results/Orders Lab Results Laboratory Tests Test 04/03/23 15:46 04/03/23 16:45 Range/Units White Blood Count 10.2 4.3-11.0 10^3/uL Red Blood Count 3.49 L 3.80-5.11 10^6/uL Hemoglobin 11.6 11.5-16.0 g/dL Hematocrit 35 35-52 % Mean Corpuscular Volume 99 80-99 fL Mean Corpuscular Hemoglobin 33 25-34 pg Mean Corpuscular Hemoglobin Concent 34 32-36 g/dL Red Cell Distribution Width 13.5 10.0-14.5 % Platelet Count 159 130-400 10^3/uL Mean Platelet Volume 10.2 9.0-12.2 fL Immature Granulocyte % (Auto) 2 % Neutrophils (%) (Auto) 81 H 42-75 % Lymphocytes (%) (Auto) 6 L 12-44 % Monocytes (%) (Auto) 11 0-12 % Eosinophils (%) (Auto) 0 0-10 % Basophils (%) (Auto) 0 0-10 % Neutrophils # (Auto) 8.3 H 1.8-7.8 10^3/uL Lymphocytes # (Auto) 0.6 L 1.0-4.0 10^3/uL Monocytes # (Auto) 1.1 H 0.0-1.0 10^3/uL Eosinophils # (Auto) 0.0 0.0-0.3 10^3/uL Basophils # (Auto) 0.0 0.0-0.1 10^3/uL Immature Granulocyte # (Auto) 0.2 H 0.0-0.1 10^3/uL Prothrombin Time 16.0 H 12.2-14.7 SEC INR Comment 1.3 0.8-1.4 Activated Partial Thromboplast Time 36 H 24-35 SEC D-Dimer 0.58 H 0.00-0.49 UG/ML Sodium Level 135 135-145 MMOL/L Potassium Level 3.5 L 3.6-5.0 MMOL/L Chloride Level 104 98-107 MMOL/L Carbon Dioxide Level 18 L 21-32 MMOL/L Anion Gap 13 5-14 MMOL/L Blood Urea Nitrogen 13 7-18 MG/DL Creatinine 0.86 0.60-1.30 MG/DL Estimat Glomerular Filtration Rate 74 BUN/Creatinine Ratio 15 Glucose Level 141 H 70-105 MG/DL Lactic Acid Level 0.96 0.50-2.00 MMOL/L Calcium Level 8.8 8.5-10.1 MG/DL Corrected Calcium 8.8 8.5-10.1 MG/DL Total Bilirubin 1.1 H 0.1-1.0 MG/DL Aspartate Amino Transf (AST/SGOT) 19 5-34 U/L Alanine Aminotransferase (ALT/SGPT) 12 0-55 U/L Alkaline Phosphatase 69 40-136 U/L Troponin I < 0.028 <0.028 NG/ML Total Protein 6.4 6.4-8.2 GM/DL Albumin 4.0 3.2-4.5 GM/DL Urine Color YELLOW Urine Clarity CLEAR Urine pH 5.5 5-9 Urine Specific [place] 1.010 L 1.016-1.022 Urine Protein NEGATIVE NEGATIVE Urine Glucose (UA) NEGATIVE NEGATIVE Urine Ketones 1+ H NEGATIVE Urine Nitrite NEGATIVE NEGATIVE Urine Bilirubin NEGATIVE NEGATIVE Urine Urobilinogen 0.2 < = 1.0 MG/DL Urine Leukocyte Esterase NEGATIVE NEGATIVE Urine RBC (Auto) NEGATIVE NEGATIVE Urine RBC NONE /HPF Urine WBC 0-2 /HPF Urine Squamous Epithelial Cells 0-2 /HPF Urine Crystals NONE /LPF Urine Bacteria TRACE /HPF Urine Casts NONE /LPF Urine Mucus NEGATIVE /LPF Urine Other /HPF Urine Yeast FEW H /HPF Urine Culture Indicated CULTURE PENDING My Orders Orders - FREGOSO,SKYLER A PA Cbc And Automated Diff (04/03/23 15:40) Comprehensive Metabolic Panel (04/03/23 15:40) Blood Culture (04/03/23 15:40) Sputum Culture (04/03/23 15:40) Urinalysis (04/03/23 15:40) Urine Culture (04/03/23 15:40) Protime With Inr (04/03/23 15:40) Partial Thromboplastin Time (04/03/23 15:40) Chest 1 View, Ap/Pa Only (04/03/23 15:40) Ed Iv/Invasive Line Start (04/03/23 15:40) Troponin I [place] (04/03/23 15:40) Vital Signs Adult Sepsis Patie Q15M (04/03/23 15:40) O2 (04/03/23 15:40) Lactic Acid Analyzer (04/03/23 15:40) Ns Iv 1000 Ml (Ns Iv 1000 Ml) (04/03/23 15:45) Ekg Tracing (04/03/23 15:40) Diltiazem Injection (Diltiazem Injection (04/03/23 16:15) Fibrin Degradation Products (04/03/23 16:20) Ct Angio Chest W (R/O Pe) (04/03/23 16:35) Iohexol Injection (Omnipaque 350 Mg/Ml 1 (04/03/23 16:45) Received Contrast (Hold Metformin- Contr (04/03/23 16:45) Ns (Ivpb) 100 Ml (Sodium Chloride 0.9% 1 (04/03/23 16:45) Ekg Tracing (04/03/23 17:14) Ns Iv 1000 Ml (Ns Iv 1000 Ml) (04/03/23 17:16) Medications Given in ED Current Medications Medications Dose Ordered Sig/[place] Route Start Time Stop Time Status Last Admin Dose Admin Diltiazem HCl 10 mg ONCE ONCE IVP 04/03/23 16:15 04/03/23 16:16 DC 04/03/23 16:19 10 MG Iohexol 100 ml ONCE ONCE IV 04/03/23 16:45 04/03/23 16:46 DC 04/03/23 17:10 70 ML Sodium Chloride 100 ml ONCE ONCE IV 04/03/23 16:45 04/03/23 16:46 DC 04/03/23 17:10 100 ML Vital Signs/I&O 04/03/23 04/03/23 04/03/23 04/03/23 15:31 15:34 16:19 18:38 Temp 36.5 Pulse 125 110 75 Resp 16 18 B/P (MAP) 108/89 (95) 103/64 106/67 Pulse Ox 95 97 O2 Delivery Room Air Room Air Capillary Refill : Less Than 3 Seconds Blood Pressure Mean: 95 ECG Comment Atrial fibrillation with RVR, 116 bpm, QRS duration 74 MS, QTc 408 MS EKG : Comment EKG at 1719 shows sinus rhythm 77 bpm, QRS duration 79 MS, QTc 453 MS. Departure Communication (PCP) Patient is a 68-year-old female with a history of B-cell lymphoma who presents to ED for flulike symptoms. She states she had a sinus infection about few weeks ago. She states she was put on doxycycline without much improvement. Saturday started developing vomiting and diarrhea on saturday which has improved. Did have some abdominal pain but no pain at this time. She reports mild cough. She denies chest pain or shortness of breath. Patient on arrival heart rate in the 130s. Appears to be irregular. Concern for A-fib. No history of A-fib or known cardiac or pulmonary disease. She reports fever and afebrile here.History of B-cell lymphoma last chemo 2 months ago and states she is currently cancer free. She does see a oncologist in [place]. 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 Septic and cardiac work-up was initiated. Differential diagnosis pneumonia, A-fib with RVR, ACS, neutropenia. patient hematology with normal white blood count and hemoglobin. Increased neutrophils noted. Chemistry showed potassium 3.5 blood sugar 141 normal lactic acid and troponin. She did have a slight elevated D-dimer 0.58. EKG showed atrial fibrillation with RVR 130 bpm. She was given a dose of Cardizem 10mg and converted. EKG sinus rhythm at 77 bpm. She did receive a liter of fluid as her blood pressure was a little soft. She did receive a second liter of fluid with continue improving her blood pressure. This could be a combination of the Cardizem versus dehydration. she is not currently on blood pressure medication. Otherwise fairly healthy. CT angio of the chest was ordered which did not note any PE but concern for pneumo mikayla. Her chest x-ray was unremarkable. She states she just finished doxycycline. She does not tolerate levofloxacin. We will start patient on Augmentin discussed adding azithromycin but she is only wanting to take 1 antibiotic. Discussed patient with career services coordinator Dr. German who recommend starting on Eliquis and metoprolol 25 mg and to follow-up with him in the clinic. If any worsening symptoms to return back to ED for further evaluation. Patient vital signs were stable. Oxygen 97% on room air. She states she feels better after she converted back to normal sinus rhythm. Recommend recheck with x-ray in 7 days. Urinalysis was negative for infection. COVID influenza outpatient today at the clinic was negative. Follow-up with PCP in 2 days for reevaluation. Impression Primary Impression: Afib Additional Impression: Pneumonia Disposition: HOME, SELF-CARE Condition: Stable Departure-Patient Inst. Decision time for Depature: 18:02 Referrals: [facility] (PCP/Family) Primary Care Physician CHETNA GERMAN MD Patient Instructions: Atrial fibrillation Add. Discharge Instructions: Take your blood thinner as prescribed. Take antibiotics as prescribed. Recommend recheck with x-ray chest within the next week. Take metoprolol for your heart rate. If any worsening symptoms return back to ED. All discharge instructions reviewed with patient and/or family. Voiced understanding. Scripts Amoxicillin/Potassium Clav (Amox Tr-K Clv 875-125 mg Tab) 875 Mg-125 Mg Tablet 1 EACH PO BID for 7 Days, #14 TAB Prov: SKYLER FREGOSO 04/03/23 Metoprolol Succinate (Metoprolol Succinate) 25 Mg Tab.er.24h 25 MG PO DAILY, #30 TAB Prov: SKYLER FREGOSO 04/03/23 Apixaban (Eliquis) 5 Mg Tablet 5 MG PO BID, #30 TAB Prov: SKYLER FREGOSO 04/03/23 SKYELR FREGOSO Apr 03, 2023 15:41
[2023-04-03] MEDS ORDERED: NS IV 1000 ML 1,000 ML IV SCH (15:45)
[2023-04-03 15:59] LABS: BASOPHILS % (AUTO) 0 % (0-10); EOSINOPHILS % (AUTO) 0 % (0-10); HEMATOCRIT 35 % (35-52); HEMOGLOBIN 11.6 g/dL (11.5-16.0); LYMPHOCYTES # (AUTO) 0.6 10^3/uL (1.0-4.0); LYMPHOCYTES % (AUTO) 6 % (12-44); MEAN CORPUSCULAR HEMOGLOBIN 33 pg (25-34); MEAN CORPUSCULAR HGB CONC 34 g/dL (32-36); MEAN CORPUSCULAR VOLUME 99 fL (80-99); MEAN PLATELET VOLUME 10.2 fL (9.0-12.2); MONOCYTES # (AUTO) 1.1 10^3/uL (0.0-1.0); MONOCYTES % (AUTO) 11 % (0-12); NEUTROPHILS # (AUTO) 8.3 10^3/uL (1.8-7.8); NEUTROPHILS % (AUTO) 81 % (42-75); PLATELET COUNT 159 10^3/uL (130-400); WHITE BLOOD COUNT 10.2 10^3/uL (4.3-11.0)
[2023-04-03 16:11] LABS: INR 1.3 (0.8-1.4)
[2023-04-03 16:15] LABS: ALANINE AMINOTRANSFERASE 12 U/L (0-55); ALKALINE PHOSPHATASE 69 U/L (40-136); BILIRUBIN,TOTAL 1.1 MG/DL (0.1-1.0); BUN/CREATININE RATIO 15; CALCIUM 8.8 MG/DL (8.5-10.1); CARBON DIOXIDE 18 MMOL/L (21-32); CHLORIDE 104 MMOL/L (98-107); CREATININE SERUM 0.86 MG/DL (0.60-1.30); GFR ESTIMATED 74; GLUCOSE 141 MG/DL (70-105); POTASSIUM 3.5 MMOL/L (3.6-5.0); SODIUM 135 MMOL/L (135-145); TOTAL PROTEIN 6.4 GM/DL (6.4-8.2)
[2023-04-03] MEDS ORDERED: dilTIAZem INJ 25 MG/5 ML VIAL IVP ONE (16:15)
--- NOTE | 2023-04-03 16:35 | Diagnostic Imaging Report ---
EXAMINATION: Chest 1 view HISTORY: cough COMPARISON: None available. FINDINGS: The lungs are clear without edema or pneumonia. No pleural effusion or pneumothorax. Heart size is normal. A right-sided port catheter is present. IMPRESSION: 1. Clear lungs. Dictated by: Dictated on workstation # [id number]
[2023-04-03] MEDS ORDERED: IOHEXOL 350 MG/ML 100 ML (OMNIPAQUE 350) VIAL IV ONE (16:45)
[2023-04-03] MEDS ORDERED: HOLD METFORMIN - RECEIVED CONTRAST 20 ML VIAL IV SCH (16:45)
[2023-04-03] MEDS ORDERED: NS 100 ML (IVPB) BAG IV ONE (16:45)
[2023-04-03 17:11] LABS: BACTERIA,URINE TRACE /HPF; BILIRUBIN,URINE NEGATIVE (NEGATIVE); CLARITY,URINE CLEAR; COLOR,URINE YELLOW; GLUCOSE, URINE (UA) NEGATIVE (NEGATIVE); KETONES,URINE 1+ (NEGATIVE); LEUKOCYTE ESTERASE ,URINE NEGATIVE (NEGATIVE); NITRITE,URINE NEGATIVE (NEGATIVE); PH,URINE 5.5 (5-9); PROTEIN,URINE NEGATIVE (NEGATIVE); SQUAMOUS EPITHELIAL CELL,UR 0-2 /HPF; WBC,URINE 0-2 /HPF; YEAST,URINE FEW /HPF
[2023-04-03] MEDS ORDERED: NS IV 1000 ML 1,000 ML IV STA (17:16)
--- NOTE | 2023-04-03 17:20 | Diagnostic Imaging Report ---
INDICATION: Hypoxia, shortness of breath. History of lymphoma. CTA chest obtained with IV contrast and axial slices and 3-D MIP reconstructions. Dose reduction protocol was used. The pulmonary parenchymal vessels are well-opacified with no CT evidence of pulmonary emboli. The thoracic aorta shows no aneurysm or dissection. Great vessel origins are patent and without stenosis. There were no enlarged mediastinal or hilar nodes. There are no enlarged axillary nodes or chest wall lesions. There is no pleural or pericardial fluid. Visualized portions of the upper abdomen appear unremarkable. Right-sided Port-A-Cath is noted with its tip in the SVC. Lung parenchymal windows demonstrate patchy areas of airspace disease in the right upper lobe. There is airspace disease with consolidation of the right middle lobe as well as some patchy infiltrate in the lingular segment of the left lung. There is some minimal infiltrate in the left lower lobe. IMPRESSION: No CT evidence of pulmonary emboli or acute aortic pathology. There is no adenopathy or pleural fluid. There are scattered patchy areas of airspace disease in both lungs most likely representing pneumonia. Consider follow-up to assure resolution. Dictated by: Dictated on workstation # [id number]
[2023-04-03] MEDS ORDERED: APIX5TAB PO (18:09)
[2023-04-03] MEDS ORDERED: DOXY100T31 PO (18:09)
[2023-04-03] MEDS ORDERED: MTP25TSR PO (18:09)
[2023-04-03] MEDS ORDERED: AMOX1TAB12 PO (18:18)
[2023-04-03 18:38] VITALS: BP 106/67
== END 2023-04-03 18:38 | disposition home or self-care (01) ==
LOC: EDUNIT# 15:22 → ER 15:28
DX: I48.91 Unspecified atrial fibrillation (principal); J18.9 Pneumonia, unspecified organism
CPT/HCPCS: 36415; 71045; 71275; 80053; 81000; 83605; 84484; 85025; 85379; 85610; 85730; 87040; 87088; 93005; 96361; 96374

== ENCOUNTER → 2023-04-11 | Outpatient (CLI) | payer MEDICARE ==
[~2023-04-11] MED LIST changes: +AMOX1TAB12 PO; +APIX5TAB PO; +DOXY100T31 PO; +MTP25TSR PO
--- NOTE | 2023-04-11 16:25 | Diagnostic Imaging Report ---
EXAMINATION: Chest 2 view HISTORY: Pneumonia COMPARISON: 04/03/2023 FINDINGS: There is mild right lung base atelectasis or pneumonia. No edema. No pleural effusion or pneumothorax. Heart size is normal. Right port catheter tip terminates in the superior vena cava. IMPRESSION: 1. Mild right lung base atelectasis or pneumonia. Dictated by: Dictated on workstation # [id number]
== END ==
LOC: RAD 15:54
PROVIDERS: ATTEND Nurse Practitioner Family
DX: J18.9 Pneumonia, unspecified organism (principal)
CPT/HCPCS: 71046

== ENCOUNTER → 2023-04-30 | Outpatient (CLI) | payer MEDICARE | LOC: CARD 10:00 | PROVIDERS: ATTEND Internal Medicine Cardiovascular Disease | DX: I10 Essential (primary) hypertension (principal); I25.10 Atherosclerotic heart disease of native coronary artery without angina pectoris | CPT/HCPCS: 93306 ==